=== PATIENT | female | born 1980 | race Two or more races ===

== ENCOUNTER 2024-09-09 02:08 | Inpatient (IN) | payer MEDICAID, OTHER ==
[~2024-09-09] VITALS: Ht 160 cm; Wt 60.0 kg
--- NOTE | 2024-09-09 02:32 | ED.PDOC ---
History of Present Illness HPI Comments 44 y/o F, with a Hx of obesity, lower molar caps placement, and tobacco use, presents with c/o left lower jaw swelling, today. Patient reports sudden onset of symptoms that she awoke to, this morning. Patient endorses on Hx of no dental work since the age of 8 w/exception of molar caps placements that fell off 2 years ago. Patient admits to still being able to move her jaw. Patient states on having no additional significant past medical, surgical, or family Hx in addition to recent injuries, sick contact, travel, spoiled food intake, or substance use/exposure. Patient denies having any shortness of breath, jaw pain, headache, fever, chills, or other associated symptoms or modifiers at this time. 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 Family History Family History: Unknown Social History Smoker: Cigarettes Alcohol: Denies ETOH Use Drugs: Denies Drug Use Lives In: Home Constitutional: denies: chills, diaphoresis, fatigue, fever, malaise, sweats, weakness, others EENTM: reports: others (left lower jaw swelling); denies: blurred vision, double vision, ear bleeding, ear discharge, ear drainage, ear pain, ear ringing, eye pain, eye redness, hearing loss, mouth pain, mouth swelling, nasal discharge, nose bleeding, nose congestion, nose pain, photophobia, tearing, throat pain, throat swelling, voice changes Respiratory: denies: cough, hemoptysis, orthopnea, SOB at rest, shortness of breath, SOB with excertion, stridor, wheezing, others Cardiovascular: denies: chest pain, dizzy spells, diaphoresis, Dyspnea on exertion, edema, irregular heart beat, left arm pain, lightheadedness, palpitations, PND, syncope, others Gastrointestinal: denies: abdomen distended, abdominal pain, blood streaked bowels, constipated, diarrhea, dysphagia, difficulty swallowing, hematemesis, melena, nausea, poor appetite, poor fluid intake, rectal bleeding, rectal pain, vomiting, others Genitourinary: denies: abnormal vagina bleeding, burning, dyspareunia, dysuria, flank pain, frequency, hematuria, incontinence, pain, , vagina discharge, urgency, others Neurological: denies: dizziness, fainting, headache, left sided numbness, left sided weakness, numbness, paresthesia, pre-existing deficit, right sided numbness, right sided weakness, seizure, speech problems, tingling, tremors, weakness, others Musculoskeletal: denies: back pain, gout, joint pain, joint swelling, muscle pain, muscle stiffness, neck pain, others Integumetry: denies: bruises, change in color, change in hair/nails, dryness, laceration, lesions, lumps, rash, wounds, others Allergic/Immunocompromised: denies: Difficulty Healing, Frequent Infections, Hives, Itching, others Hematologic/Lymphatic: denies: anemia, blood clots, easy bleeding, easy bruising, swollen glands, others Endocrine: denies: excessive hunger, excessive sweating, excessive thirst, excessive urination, flushing, intolerance to cold, intolerance to heat, unexplained weight gain, unexplained weight loss, others Psychiatric: denies: anxiety, bipolar disorder, depression, hopeless, panic disorder, schizophrenia, sleepless, suicidal, others All Other Systems: Reviewed and Negative Physical Exam General Appearance: No Apparent Distress, Obese HEENT: Pharynx Normal, TMs Normal, Other (left mandible swelling, no trismus, rull ROM of the jaw, no swelling to oral cavity, two extensive deep dental caries to bilateral lower molars) Neck: Full Range of Motion, Non-Tender, Normal, Normal Inspection Respiratory: Chest Non-Tender, Lungs Clear, No Accessory Muscle Use, No Respiratory Distress, Normal Breath Sounds Cardiovascular: No Edema, No JVD, No Murmur, No Gallop, Normal Peripheral Pulses, Regular Rate/Rhythm Breast Exam: Deferred Gastrointestinal: No Organomegaly, Non Tender, No Pulsatile Mass, Normal Bowel Sounds, Soft Genitalia: Deferred Pelvic: Deferred Rectal: Deferred Extremities: No calf tenderness, Normal capillary refill, Normal inspection, Normal range of motion, Non-tender, No pedal edema Musculoskeletal : Apperance: Normal Neurologic: Alert, crap game box person II-XII nml as Tested, No Motor Deficits, Normal Affect, Normal Mood, No Sensory Deficits Cerebellar Function: Normal Reflexes: Normal Skin: Dry, Normal Color, Warm Lymphatic: No Adenopathy Was a procedure done? Was a procedure done?: No Differential Dx Considerations may include: mandibular abscess, mandibular mass, facial cellulitis, jaw fracture, dental carries, gingivitis, airway compromise, osteomyelitis X-Ray, Labs, Meds, VS Vital Signs Date Time Temp Pulse Resp B/P (MAP) Pulse Ox O2 Delivery O2 Flow Rate FiO2 09/09/24 02:21 99.0 99 18 170/114 (132) 98 Lab Test 09/09/24 02:28 Range/Units White Blood Count 17.4 H 4.4-10.8 10^3/uL Red Blood Count 4.75 4.0-5.20 10^6/uL Hemoglobin 16.9 H 12.2-16.2 g/dL Hematocrit 49.4 H 36.0-46.0 % Mean Corpuscular Volume 104.1 H 80.0-100.0 fL Mean Corpuscular Hemoglobin 35.6 H 28.0-32.0 pg Mean Corpuscular Hemoglobin Concent 34.2 32.0-36.0 g/dL Red Cell Distribution Width 13.8 11.8-14.3 % Platelet Count 322 140-450 10^3/uL Mean Platelet Volume 7.8 6.9-10.8 fL Neutrophils (%) (Auto) 78.0 37.0-80.0 % Lymphocytes (%) (Auto) 16.0 10.0-50.0 % Monocytes (%) (Auto) 4.4 0.0-12.0 % Eosinophils (%) (Auto) 0.4 0.0-7.0 % Basophils (%) (Auto) 1.2 0.0-2.0 % Neutrophils # (Auto) 13.6 H 1.6-8.6 10 ^3/uL Lymphocytes # (Auto) 2.8 0.4-5.4 10 ^3/uL Monocytes # (Auto) 0.8 0-1.3 10 ^3/uL Eosinophils # (Auto) 0.1 0-0.8 10 ^3/uL Basophils # (Auto) 0.2 0-0.2 10 ^3/uL Nucleated Red Blood Cells 0.0 % Sodium Level 142 136-145 mmol/L Potassium Level 3.5 3.5-5.1 mmol/L Chloride Level 106 98-107 mmol/L Carbon Dioxide Level 24 20-31 mmol/L Anion Gap 12 5-15 Blood Urea Nitrogen 5 L 9-23 mg/dL Creatinine 0.62 0.550-1.02 mg/dL Glomerular Filtration Rate Calc 113 >90 mL/min BUN/Creatinine Ratio 8.1 L 10.0-20.0 Serum Glucose 103 74-106 mg/dL Calcium Level 9.8 8.7-10.4 mg/dL Time of 1ST Reevaluation: 02:50 Reevaluation 1ST: Unchanged Time of 2ND Reevaluation: 03:02 Reevaluation 2ND: Improved Patient Education/Counseling: Diagnosis, Treatment Family Education/Counseling: No Family Present Additional Information pt has dental caries with sudden onset of swelling on the left jaw. by exam and history, pt likely has a phlegmon, without leandro abscess yet. xray soft tissue swelling. pt will need admission for iv abx. she does not have any signs of airway threats, nor trismus Departure 1 Departure Time of Disposition: 03:04 Impression: Primary Impression: Dental caries Additional Impression: Dental abscess Disposition: ADMITTED INPATIENT Admit to: Med Surg Condition: Stable Critical Care Note Critical Care Time?: No Critical care comment: due to the possibility of acute airway conpromise from worsening and deterioration of pt's condition, her care required my highest level of at tention. i assessed her and formulated a care plan, communicated with medical personnel, and reviewed her results, reassessed her and provided updates. total time excludes any procedures Stability Stability form required: No Heart Score Heart Score: Heart Score Response (Comments) Value History N/A 0 EKG N/A 0 Age N/A 0 Risk Factors N/A 0 Troponin N/A 0 Total 0 I personally scribed for SHARI JONES MD ([email or web address]) on 09/09/24 at 02:32. Electronically submitted by Raymon Banuelos ([email or web address]). SHARI JONES MD Sep 09, 2024 02:32
[2024-09-09 02:44] LABS: Eosinophils # (auto) 0.1 10 ^3/uL (0-0.8); Eosinophils % (auto) 0.4 % (0.0-7.0); Neutrophils # (auto) 13.6 10 ^3/uL (1.6-8.6); Red Cell Distribution Width 13.8 % (11.8-14.3)
[2024-09-09 02:45] LABS: Basophils # (auto) 0.2 10 ^3/uL (0-0.2); Basophils % (auto) 1.2 % (0.0-2.0); Hematocrit 49.4 % (36.0-46.0); Hemoglobin 16.9 g/dL (12.2-16.2); Lymphocytes # (auto) 2.8 10 ^3/uL (0.4-5.4); Mean Corpuscular Hemoglobin 35.6 pg (28.0-32.0); Mean Corpuscular Hgb Conc. 34.2 g/dL (32.0-36.0); Mean Corpuscular Volume 104.1 fL (80.0-100.0); Monocytes # (auto) 0.8 10 ^3/uL (0-1.3); Monocytes % (auto) 4.4 % (0.0-12.0); Platelet Count (auto) 322 10^3/uL (140-450); Red Blood Cells 4.75 10^6/uL (4.0-5.20); White Blood Cell 17.4 10^3/uL (4.4-10.8)
[2024-09-09 02:51] LABS: Chloride 106 mmol/L (98-107); Potassium 3.5 mmol/L (3.5-5.1); Sodium 142 mmol/L (136-145)
[2024-09-09 02:52] LABS: Anion Gap 12 (5-15); Calcium 9.8 mg/dL (8.7-10.4); Carbon Dioxide 24 mmol/L (20-31)
[2024-09-09 02:57] LABS: BUN/Creatinine Ratio 8.1 (10.0-20.0); Blood Urea Nitrogen 5 mg/dL (9-23); Glucose 103 mg/dL (74-106)
--- NOTE | 2024-09-09 03:49 | DVH ---
Examination: MANDB CLINICAL INDICATION: mandibular swelling COMPARISON: None. TECHNIQUE: Five radiographs of the mandible were obtained. FINDINGS: There is no acute fracture or dislocation. There is no evidence of lytic or blastic lesion. Soft tissue swelling in bilateral submandibular regions (left more than right). Radiopaque dental fillings noted. IMPRESSION: 1. Soft tissue swelling in bilateral submandibular regions (left more than right). 2. Advised further evaluation with local ultrasound study. Electronically Signed 09/09/2024 03:40 Delores Ramsey
[2024-09-09] MEDS: cefTRIAXone SOD 1,000 MG VL IM ONE (04:51)
[2024-09-09 06:20] VITALS: PULSE 116; RESP 16; O2SAT 96
--- NOTE | 2024-09-09 07:14 | DVHHP2 ---
History of Present Illness Reason for Visit: Left facial swelling History of Present Illness 44-year-old female presents for evaluation of left facial swelling. Patient reports recently losing one of her molar caps. She states waking up yesterday with her left face swollen. She reports mild tenderness on palpation. No fever or chills. Denies difficulty breathing or swallowing. Past Medical History Denies Past Surgical History Denies Family History Noncontributory Smoke: No Drugs: None Lives: Alone Review of Systems Review of Systems Review of systems are currently negative otherwise addressed in HPI. Allergies: Coded Allergies: No Known Drug Allergy (Verified Allergy, Unknown, 09/09/24) Exam Vital Signs Vital Signs Date Time Temp Pulse Resp B/P (MAP) Pulse Ox O2 Delivery O2 Flow Rate FiO2 09/09/24 07:04 105 17 155/100 (118) 94 09/09/24 06:20 Room Air* 0 21 21 09/09/24 04:48 97.3 97.3 Exam Gen: 44-year-old female in mild Skin: Warm, dry, normal color and texture, no rash. HEENT: Normocephalic atraumatic, mucous membranes moist and pink, left facial swelling with mild cellulitis. Neck: Cervical and supraclavicular nodes normal without enlargement, trachea is midline, thyroid gland is normal without masses. Pulmonary: Clear to auscultation and percussion bilaterally. Cardiac: Regular rate and rhythm. No murmur Abdomen: Soft, nontender, nondistended, bowel sounds present all 4 quadrants, no guarding, no rigidity, no organomegaly. Extremities: No cyanosis, clubbing, no edema Neuro: Cranial nerves II through XII grossly intact, normal affect and speech, no focal motor deficits. Labs/Xrays ORDERING PHYSICIAN: SHARI JONES MD PROCEDURE(s): MANDB - MANDIBLE COMPLETE MIN 4V REASON: mandibular swelling ORDER NUMBER(s): [id number], ACCESSION NUMBER(s): [id number] Examination: MANDB CLINICAL INDICATION: mandibular swelling COMPARISON: None. TECHNIQUE: Five radiographs of the mandible were obtained. FINDINGS: There is no acute fracture or dislocation. There is no evidence of lytic or blastic lesion. Soft tissue swelling in bilateral submandibular regions (left more than right). Radiopaque dental fillings noted. IMPRESSION: 1. Soft tissue swelling in bilateral submandibular regions (left more than right). 2. Advised further evaluation with local ultrasound study. Electronically Signed 09/09/2024 03:40 Delores Ramsey ATED BY: BLAISE HUMMEL MD Labs Test 09/09/24 02:28 Range/Units White Blood Count 17.4 H 4.4-10.8 10^3/uL Red Blood Count 4.75 4.0-5.20 10^6/uL Hemoglobin 16.9 H 12.2-16.2 g/dL Hematocrit 49.4 H 36.0-46.0 % Mean Corpuscular Volume 104.1 H 80.0-100.0 fL Mean Corpuscular Hemoglobin 35.6 H 28.0-32.0 pg Mean Corpuscular Hemoglobin Concent 34.2 32.0-36.0 g/dL Red Cell Distribution Width 13.8 11.8-14.3 % Platelet Count 322 140-450 10^3/uL Mean Platelet Volume 7.8 6.9-10.8 fL Neutrophils (%) (Auto) 78.0 37.0-80.0 % Lymphocytes (%) (Auto) 16.0 10.0-50.0 % Monocytes (%) (Auto) 4.4 0.0-12.0 % Eosinophils (%) (Auto) 0.4 0.0-7.0 % Basophils (%) (Auto) 1.2 0.0-2.0 % Neutrophils # (Auto) 13.6 H 1.6-8.6 10 ^3/uL Lymphocytes # (Auto) 2.8 0.4-5.4 10 ^3/uL Monocytes # (Auto) 0.8 0-1.3 10 ^3/uL Eosinophils # (Auto) 0.1 0-0.8 10 ^3/uL Basophils # (Auto) 0.2 0-0.2 10 ^3/uL Nucleated Red Blood Cells 0.0 % Sodium Level 142 136-145 mmol/L Potassium Level 3.5 3.5-5.1 mmol/L Chloride Level 106 98-107 mmol/L Carbon Dioxide Level 24 20-31 mmol/L Anion Gap 12 5-15 Blood Urea Nitrogen 5 L 9-23 mg/dL Creatinine 0.62 0.550-1.02 mg/dL Glomerular Filtration Rate Calc 113 >90 mL/min BUN/Creatinine Ratio 8.1 L 10.0-20.0 Serum Glucose 103 74-106 mg/dL Calcium Level 9.8 8.7-10.4 mg/dL Assessment/Plan Assessment/Plan Assessment Left facial cellulitis Leukocytosis Plan Admit the patient to [facility] to the hospitalist Vancomycin Clear liquid diet Pain management Continue treatment per orders. Plan discussed with: Patient My Orders Orders - ROSA MARIA TROY Procedure Category Date Status Time Vancomycin Per PHA 09/09/24 Verified Pharmacy 07:15 Lactic Acid W/ Reflex LAB 09/09/24 Verified Order 07:05 Basic Metabolic Panel LAB 09/10/24 Verified 04:00 Admit ADMIT 09/09/24 Verified 07:05 Hydrocodone-Acet PHA 09/09/24 Verified 5/325mg Tab ([place] 07:15 Temazepam (Restoril) PHA 09/09/24 Verified 07:15 Ondansetron Hcl PHA 09/09/24 Verified (Zofran) 07:15 Complete Blood Count LAB 09/10/24 Verified 04:00 Condition: Stable TANVIR 09/09/24 Verified 07:05 Acetaminophen Tablet PHA 09/09/24 Verified (Tylenol Tablet) 07:15 Bedrest With Bathroom TANVIR 09/09/24 Verified Privileg 07:05 Date of Service: Sep 09, 2024 Billing Provider: ROSA MARIA TROY Common Visit Codes: [id number] INP/OBS CARE (MOD) ROSA MARIA TROY Sep 09, 2024 07:14
[2024-09-09] MEDS ORDERED: VANCOMYCIN PER PHARMACY 0 MG IV SCH (07:15)
[2024-09-09] MEDS ORDERED: ACETAMINOPHEN 325 MG TAB PO PRN (07:15)
[2024-09-09] MEDS ORDERED: TEMAZEPAM 15 MG CAP PO PRN (07:15)
[2024-09-09] MEDS: VANCOMYCIN 1.25GM/250ML 250 ML IV ONE (08:11)
[2024-09-09 08:25] VITALS: PULSE 98; RESP 16; O2SAT 96
[2024-09-09 08:36] LABS: Lactic Acid w/Reflex 2.6 mmol/L (0.4-2.0)
[2024-09-09] MEDS: IOHEXOL 300 MG/ML 100ML BOTTLE IJ ONE (11:35)
[2024-09-09] MEDS: ONDANSETRON HCL 4 MG/2 ML VIAL IV PRN (11:56)
[2024-09-09] MEDS: MORPHINE SULFATE INJ 2 MG/ml SYRG IV PRN (11:58)
[2024-09-09] MEDS: MORPHINE SULFATE INJ 2 MG/ml SYRG ONE (12:07)
--- NOTE | 2024-09-09 12:25 | DVH ---
CT maxillofacial HISTORY: r/o abscess TECHNIQUE: Serial axial images were performed through the facial bones and reformatted in sagittal an d coronal planes. 100 cc Omnipaque 300 given IV FINDINGS:On axial images no fractures of the mandible, zygomatic arches, orbital lateral or medial or bital [place]. On sagittal images no fractures of the anterior maxillary spine or nasal bone. No fractures of the an terior posterior [place] of the paranasal sinuses On coronal images no fractures of the superior or inferior [place] of the orbits. The temporomandibular joints are symmetrically aligned. On soft tissue windows there is soft tissue swelling of the left masseter muscle and overlying subc utaneous tissues. No leandro abscess seen. No enlarged nodes in the upper neck. Small bilateral level 1 and level 2 lymph nodes are present. No masses in the parotid gland or parotid abscess. Paranasal sinuses are clear. No erosion of bone. IMPRESSION: 1. Soft tissue swelling overlying the left mandible without discernible mass or bony erosion Computed Tomographic Radiation Dosimetry Report: Total CTDI vol = 60 mGy Total DLP = 1370 mGy-cm All CT scans at this medical facility are performed using dose modulation techniques as appropriate t o a performed exam including the following: Automated exposure control was utilized; adjustment of the MA and/or KvP according to patient size; a nd use of iterative reconstruction technique.
[2024-09-09] MEDS: AMPICILLIN & SULBACTAM SODIUM 3 GM in SODIUM CHL 0.9% 100 ML IV SCH (14:26)
[2024-09-09] MEDS: HYDROcodone-ACET 5/325MG TAB PO PRN (14:27)
[2024-09-09] MEDS: VANCOMYCIN 1GM/200ML PREMIX 200 ML IV SCH (15:43)
--- NOTE | 2024-09-09 19:25 | DVHPN2 ---
Subjective 44-year-old female with 1 day history of left side facial swelling. Admitted for left facial cellulitis. CT done, no abscess. Reviewed: Care Plan, H&P, Labs, Medications, Previous Orders, Radiology Changes from previous H/P or p: No Changes Objective Vitals Vital Signs Date Time Temp Pulse Resp B/P (MAP) Pulse Ox O2 Delivery O2 Flow Rate FiO2 09/09/24 18:49 93 21 130/79 (96) 99 09/09/24 15:06 98.3 98.3 09/09/24 08:25 Room Air* 0 21 21 Exam Alert, oriented x3 PERRLA Warm and flushed left mandibular swelling Multiple dental caries No JVD Clear breath sounds bilaterally S1-S2 regular rate and rhythm no murmur Abdomen soft nontender, no hepatomegaly Equal strength bilaterally on upper and lower extremities No lower extremity edema Medications Current Medications Medications Dose Ordered Sig/Charlette Route Start Time Stop Time Status Last Admin Dose Admin Vancomycin HCl 0 ml @ 0 mls/hr UD IV 09/09/24 07:15 Acetaminophen/ Hydrocodone Bitart 1 tab Q4HP PRN PO 09/09/24 07:15 09/09/24 14:27 1 TAB Temazepam 15 mg QHSP PRN PO 09/09/24 07:15 Ondansetron HCl 4 mg Q4HP PRN IV 09/09/24 07:15 09/09/24 18:26 4 MG Acetaminophen 650 mg Q6HP PRN PO 09/09/24 07:15 Vancomycin HCl 200 ml @ 200 mls/hr Q8H IV 09/09/24 16:00 09/09/24 15:43 200 MLS/HR Morphine Sulfate 2 mg Q4HPRN PRN IV 09/09/24 11:45 09/09/24 18:28 2 MG Ampicillin Sodium/ Sulbactam Sodium 3 gm/Sodium Chloride 100 ml @ 100 mls/hr Q6H IV 09/09/24 13:15 09/09/24 14:26 100 MLS/HR Laboratory Results Laboratory Tests 09/09/24 02:28 Chemistry Test 09/09/24 02:28 Calcium Level 9.8 mg/dL (8.7-10.4) Labs and/or images reviewed: Labs reviewed by me, Image(s) reviewed by me Assessment/Plan Assessment/Plan Left facial cellulitis Dental infection Leukocytosis Start IV Unasyn CT reviewed, no abscess If no clinical improvement, patient will need oral surgery consult We will hold and try IV antibiotics for now Pain control Diet advanced as tolerated DVT prophylaxis ambulatory Plan discussed with: Patient My Orders Orders - PEDRO LAZO MD Procedure Category Date Status Time Maxillofacial With CT 09/09/24 Resulted 11:01 Ampicillin & PHA 09/09/24 In Process Sulbactam Sodium 13:15 Mrsa Screen ASHLEE 09/09/24 Logged 13:06 Blood Culture ASHLEE 09/09/24 In Process 13:06 Date of Service: Sep 09, 2024 Billing Provider: PEDRO LAZO MD Common Visit Codes: [id number] INP/OBS CARE(HIGH) PEDRO LAZO MD Sep 09, 2024 19:25
[2024-09-09 21:00] VITALS: BP 171/99; PULSE 81; RESP 17; TEMP 97.9; O2SAT 98
[2024-09-10] VITALS (8 sets, daily range): BP systolic 144–171; BP diastolic 90–111; PULSE 76–95; RESP 17–18; TEMP 97.5–98.3; O2SAT 95–98
[2024-09-10] MEDS: AMPICILLIN & SULBACTAM SODIUM 3 GM in SODIUM CHL 0.9% 100 ML IV SCH (02:55)
[2024-09-10 05:05] LABS: Basophils # (auto) 0 10 ^3/uL (0-0.2); Basophils % (auto) 0.1 % (0.0-2.0); Eosinophils # (auto) 0 10 ^3/uL (0-0.8); Eosinophils % (auto) 0.3 % (0.0-7.0); Hematocrit 41.9 % (36.0-46.0); Lymphocytes # (auto) 1.7 10 ^3/uL (0.4-5.4); Lymphocytes % (auto) 13.7 % (10.0-50.0); Mean Corpuscular Hgb Conc. 33.4 g/dL (32.0-36.0); Mean Corpuscular Volume 104.9 fL (80.0-100.0); Monocytes # (auto) 0.7 10 ^3/uL (0-1.3); Monocytes % (auto) 6.1 % (0.0-12.0); Neutrophils # (auto) 9.7 10 ^3/uL (1.6-8.6); Neutrophils % (auto) 79.8 % (37.0-80.0); Nucleated Red Blood Cells % 0.1 %; Platelet Count (auto) 234 10^3/uL (140-450); Red Blood Cells 3.99 10^6/uL (4.0-5.20); Red Cell Distribution Width 13.4 % (11.8-14.3); White Blood Cell 12.1 10^3/uL (4.4-10.8)
[2024-09-10 05:14] LABS: Chloride 104 mmol/L (98-107); Potassium 3.2 mmol/L (3.5-5.1); Sodium 139 mmol/L (136-145)
[2024-09-10 05:15] LABS: Anion Gap 7 (5-15); Calcium 8.9 mg/dL (8.7-10.4); Carbon Dioxide 28 mmol/L (20-31)
[2024-09-10 05:20] LABS: BUN/Creatinine Ratio 7.9 (10.0-20.0); Blood Urea Nitrogen 5 mg/dL (9-23); Glucose 104 mg/dL (74-106)
[2024-09-10] MEDS: amLODIPine BESYLATE 5 MG TAB PO SCH (08:59)
--- NOTE | 2024-09-10 16:30 | DVHPN2 ---
Subjective 44-year-old female with 1 day history of left side facial swelling. Admitted for left facial cellulitis. CT done, no abscess. Seen by me today during rounds Improvement in facial swelling, and improvement in pains. Patient on day2 of Twin Reviewed: Care Plan, H&P, Labs, Medications, Previous Orders, Radiology Changes from previous H/P or p: No Changes Objective Vitals Vital Signs Date Time Temp Pulse Resp B/P (MAP) Pulse Ox O2 Delivery O2 Flow Rate FiO2 09/10/24 14:52 78 20 143/54 09/10/24 12:30 98.0 98 98.0 09/10/24 08:00 Room Air* 0 21 Intake/Output Intake and Output 09/10/24 07:00 Intake Total 750 ml Balance 750 ml IV Total 750 ml Exam Alert, oriented x3 PERRLA Warm and flushed left mandibular swelling Multiple dental caries No JVD Clear breath sounds bilaterally S1-S2 regular rate and rhythm no murmur Abdomen soft nontender, no hepatomegaly Equal strength bilaterally on upper and lower extremities No lower extremity edema Medications Current Medications Medications Dose Ordered Sig/Charlette Route Start Time Stop Time Status Last Admin Dose Admin Vancomycin HCl 0 ml @ 0 mls/hr UD IV 09/09/24 07:15 Acetaminophen/ Hydrocodone Bitart 1 tab Q4HP PRN PO 09/09/24 07:15 09/10/24 06:48 1 TAB Temazepam 15 mg QHSP PRN PO 09/09/24 07:15 Ondansetron HCl 4 mg Q4HP PRN IV 09/09/24 07:15 09/10/24 14:21 4 MG Acetaminophen 650 mg Q6HP PRN PO 09/09/24 07:15 Vancomycin HCl 200 ml @ 200 mls/hr Q8H IV 09/09/24 16:00 09/10/24 08:58 200 MLS/HR Morphine Sulfate 2 mg Q4HPRN PRN IV 09/09/24 11:45 09/10/24 14:22 2 MG Ampicillin Sodium/ Sulbactam Sodium 3 gm/Sodium Chloride 100 ml @ 100 mls/hr Q6H IV 09/10/24 02:15 09/10/24 14:23 100 MLS/HR Amlodipine Besylate 5 mg DAILY PO 09/10/24 10:00 09/10/24 08:59 5 MG Laboratory Results Laboratory Tests 09/10/24 04:06 Chemistry Test 09/10/24 04:06 Calcium Level 8.9 mg/dL (8.7-10.4) Microbiology Microbiology Date/Time Source Procedure Growth Status 09/09/24 13:23 Blood Blood Culture - Preliminary NO GROWTH AFTER 24 HOURS OF INCUBATION. Resulted Labs and/or images reviewed: Labs reviewed by me, Image(s) reviewed by me Assessment/Plan Assessment/Plan Left facial cellulitis Dental infection Leukocytosis Start IV Unasyn vanco CT reviewed, no abscess If no clinical improvement, patient will need oral surgery consult We will hold and try IV antibiotics for now Pain control , scheduled Tylenol and Motrin Diet advanced as tolerated DVT prophylaxis ambulatory Plan discussed with: Patient My Orders Orders - PEDRO LAZO MD Procedure Category Date Status Time Mrsa Screen ASHLEE 09/09/24 Logged 19:25 Ampicillin & PHA 09/10/24 In Process Sulbactam Sodium 02:15 Amlodipine Tablet PHA 09/10/24 In Process (Norvasc Tablet) 10:00 Date of Service: Sep 10, 2024 Billing Provider: PEDRO LAZO MD Common Visit Codes: [id number] INP/OBS CARE(HIGH) PEDRO ALZO MD Sep 10, 2024 16:30
[2024-09-10] MEDS: ACETAMINOPHEN 325 MG TAB PO SCH (21:49)
[2024-09-10] MEDS: IBUPROFEN 400 MG TAB PO SCH (21:50)
[2024-09-11] VITALS (7 sets, daily range): BP systolic 117–159; BP diastolic 76–105; PULSE 67–79; RESP 18–20; TEMP 97.7–98.4; O2SAT 96–98
[2024-09-11 05:28] LABS: Basophils # (auto) 0 10 ^3/uL (0-0.2); Basophils % (auto) 0.2 % (0.0-2.0); Eosinophils # (auto) 0.1 10 ^3/uL (0-0.8); Eosinophils % (auto) 1.1 % (0.0-7.0); Hematocrit 40.8 % (36.0-46.0); Hemoglobin 13.8 g/dL (12.2-16.2); Lymphocytes # (auto) 1.6 10 ^3/uL (0.4-5.4); Lymphocytes % (auto) 15.5 % (10.0-50.0); Mean Corpuscular Hemoglobin 35.5 pg (28.0-32.0); Mean Corpuscular Hgb Conc. 33.9 g/dL (32.0-36.0); Mean Corpuscular Volume 104.5 fL (80.0-100.0); Monocytes # (auto) 0.7 10 ^3/uL (0-1.3); Monocytes % (auto) 6.2 % (0.0-12.0); Neutrophils # (auto) 8.2 10 ^3/uL (1.6-8.6); Platelet Count (auto) 237 10^3/uL (140-450); Red Cell Distribution Width 13.5 % (11.8-14.3); White Blood Cell 10.6 10^3/uL (4.4-10.8)
[2024-09-11 05:30] LABS: Chloride 109 mmol/L (98-107); Potassium 3.5 mmol/L (3.5-5.1); Sodium 142 mmol/L (136-145)
[2024-09-11 05:31] LABS: Anion Gap 7 (5-15); Calcium 8.8 mg/dL (8.7-10.4); Carbon Dioxide 26 mmol/L (20-31)
[2024-09-11 05:36] LABS: Glucose 113 mg/dL (74-106)
[2024-09-11 05:37] LABS: BUN/Creatinine Ratio 9.4 (10.0-20.0); Blood Urea Nitrogen < 5 mg/dL (9-23)
[2024-09-11] MEDS ORDERED: diphenhdrAMINE HCL 50 MG/1 ML VL IV PRN (11:30)
--- NOTE | 2024-09-11 12:22 | DVHPN2 ---
Subjective 44-year-old female with 1 day history of left side facial swelling. Admitted for left facial cellulitis. CT done, no abscess. Seen by me today during rounds Further improvement in swelling and pain. patient developed a rash in her neck and chest. no breathing problems. will givebenadryl for now. start protonix. Reviewed: Care Plan, H&P, Labs, Medications, Previous Orders, Radiology Changes from previous H/P or p: No Changes Objective Vitals Vital Signs Date Time Temp Pulse Resp B/P (MAP) Pulse Ox O2 Delivery O2 Flow Rate FiO2 09/11/24 11:00 79 19 126/86 09/11/24 08:57 97.7 97 97.7 09/10/24 20:30 Room Air* 0 21 Intake/Output Intake and Output 09/11/24 07:00 Intake Total 1676 ml Balance 1676 ml Intake Oral 1276 ml IV Total 400 ml # Voids 9 Exam Alert, oriented x3 PERRLA Warm and flushed left mandibular swelling Multiple dental caries No JVD Clear breath sounds bilaterally S1-S2 regular rate and rhythm no murmur Abdomen soft nontender, no hepatomegaly Equal strength bilaterally on upper and lower extremities No lower extremity edema Medications Current Medications Medications Dose Ordered Sig/Charlette Route Start Time Stop Time Status Last Admin Dose Admin Vancomycin HCl 0 ml @ 0 mls/hr UD IV 09/09/24 07:15 Acetaminophen/ Hydrocodone Bitart 1 tab Q4HP PRN PO 09/09/24 07:15 09/11/24 04:46 1 TAB Temazepam 15 mg QHSP PRN PO 09/09/24 07:15 Ondansetron HCl 4 mg Q4HP PRN IV 09/09/24 07:15 09/10/24 14:21 4 MG Vancomycin HCl 200 ml @ 200 mls/hr Q8H IV 09/09/24 16:00 09/11/24 08:48 200 MLS/HR Morphine Sulfate 2 mg Q4HPRN PRN IV 09/09/24 11:45 09/11/24 11:00 2 MG Ampicillin Sodium/ Sulbactam Sodium 3 gm/Sodium Chloride 100 ml @ 100 mls/hr Q6H IV 09/10/24 02:15 09/11/24 10:06 100 MLS/HR Amlodipine Besylate 5 mg DAILY PO 09/10/24 10:00 09/11/24 08:59 5 MG Acetaminophen 650 mg Q8HR PO 09/10/24 22:00 09/11/24 05:45 650 MG Ibuprofen 400 mg Q8HR PO 09/10/24 22:00 09/11/24 05:45 400 MG Pantoprazole Sodium 40 mg DAILY@0600 PO 09/12/24 06:00 Diphenhydramine HCl 25 mg Q4HP PRN IV 09/11/24 11:30 Laboratory Results Laboratory Tests 09/11/24 04:20 Chemistry Test 09/11/24 04:20 Calcium Level 8.8 mg/dL (8.7-10.4) Microbiology Microbiology Date/Time Source Procedure Growth Status 09/09/24 13:23 Blood Blood Culture - Preliminary NO GROWTH AFTER 24 HOURS OF INCUBATION. Resulted Labs and/or images reviewed: Labs reviewed by me, Image(s) reviewed by me Assessment/Plan Assessment/Plan Left facial cellulitis Dental infection Leukocytosis drug reaction Start IV Unasyn vanco CT reviewed, no abscess If no clinical improvement, patient will need oral surgery consult We will hold and try IV antibiotics for now Pain control , scheduled Tylenol and Motrin will start benadryl airway watch Diet advanced as tolerated DVT prophylaxis ambulatory Plan discussed with: Patient My Orders Orders - PEDRO LAZO MD Procedure Category Date Status Time Acetaminophen Tablet PHA 09/10/24 In Process (Tylenol Tablet) 22:00 Ibuprofen Tablet PHA 09/10/24 In Process (Motrin Tablet) 22:00 Pantoprazole Tablet PHA 09/12/24 In Process (Protonix Tablet) 06:00 Diphenhdramine PHA 09/11/24 In Process Injection (Benadryl 11:30 Date of Service: Sep 11, 2024 Billing Provider: PEDRO LAZO MD Common Visit Codes: [id number] INP/OBS CARE(HIGH) PEDRO LAZO MD Sep 11, 2024 12:22
[2024-09-11] MEDS: PANTOPRAZOLE 40 MG TAB PO ONE (12:48)
[2024-09-12 01:00] VITALS: BP 120/80; PULSE 69; RESP 20; TEMP 98; O2SAT 97
[2024-09-12 05:00] VITALS: BP 139/96; PULSE 77; RESP 22; TEMP 98.1; O2SAT 99
[2024-09-12] MEDS: PANTOPRAZOLE 40 MG TAB PO SCH (07:06)
[2024-09-12 09:08] VITALS: BP 147/96; PULSE 87; RESP 19; TEMP 97.8; O2SAT 94
[2024-09-12] MEDS: amLODIPine BESYLATE 5 MG TAB PO ONE (11:38)
[2024-09-12] MEDS: POLYETHYLENE GLYCOL 17 GM PWDR PO PRN (11:41)
[2024-09-12 11:48] VITALS: BP 143/97; PULSE 78; RESP 16; TEMP 98.1; O2SAT 98
[2024-09-12] MEDS ORDERED: AML5T PO (12:44)
[2024-09-12] MEDS ORDERED: POLY335015 PO (12:44)
[2024-09-12] MEDS ORDERED: AUG875T PO (12:44)
[2024-09-12] MEDS ORDERED: IBUP1TAB4 PO (12:44)
[2024-09-12] MEDS ORDERED: DOXY100C79 PO (12:44)
[2024-09-12] MEDS ORDERED: PANT40TA2 PO (12:44)
--- NOTE | 2024-09-12 13:39 | DVHDS2 ---
Discharge Summary Date of Admission Sep 09, 2024 at 07:05 Date of Discharge: Sep 12, 2024 Labs/Diagnostic Data: Laboratory Results Test 09/11/24 15:07 09/11/24 04:20 09/09/24 13:23 Vancomycin Level Trough 13.9 ug/mL (5-10) White Blood Count 10.6 10^3/uL (4.4-10.8) Red Blood Count 3.90 10^6/uL (4.0-5.20) Hemoglobin 13.8 g/dL (12.2-16.2) Hematocrit 40.8 % (36.0-46.0) Mean Corpuscular Volume 104.5 fL (80.0-100.0) Mean Corpuscular Hemoglobin 35.5 pg (28.0-32.0) Mean Corpuscular Hemoglobin Concent 33.9 g/dL (32.0-36.0) Red Cell Distribution Width 13.5 % (11.8-14.3) Platelet Count 237 10^3/uL (140-450) Mean Platelet Volume 8.4 fL (6.9-10.8) Neutrophils (%) (Auto) 77.0 % (37.0-80.0) Lymphocytes (%) (Auto) 15.5 % (10.0-50.0) Monocytes (%) (Auto) 6.2 % (0.0-12.0) Eosinophils (%) (Auto) 1.1 % (0.0-7.0) Basophils (%) (Auto) 0.2 % (0.0-2.0) Neutrophils # (Auto) 8.2 10 ^3/uL (1.6-8.6) Lymphocytes # (Auto) 1.6 10 ^3/uL (0.4-5.4) Monocytes # (Auto) 0.7 10 ^3/uL (0-1.3) Eosinophils # (Auto) 0.1 10 ^3/uL (0-0.8) Basophils # (Auto) 0 10 ^3/uL (0-0.2) Nucleated Red Blood Cells 0.0 % Sodium Level 142 mmol/L (136-145) Potassium Level 3.5 mmol/L (3.5-5.1) Chloride Level 109 mmol/L (98-107) Carbon Dioxide Level 26 mmol/L (20-31) Anion Gap 7 (5-15) Blood Urea Nitrogen < 5 mg/dL (9-23) Creatinine 0.53 mg/dL (0.550-1.02) Glomerular Filtration Rate Calc 118 mL/min (>90) BUN/Creatinine Ratio 9.4 (10.0-20.0) Serum Glucose 113 mg/dL (74-106) Calcium Level 8.8 mg/dL (8.7-10.4) Lactic Acid Level 1.3 mmol/L (0.4-2.0) Other Laboratory Tests 09/11/24 04:20 Brief Hx & Hospital Course: She will female with no significant past medical history admitted for cellulitis. CT maxillofacial obtained, no abscess. Cellulitis likely from dental origin. Patient would need to speak with social service team for insurance purposes. Patient on vanc and Unasyn, we will switch to Augmentin and doxy oral at home. Patient to follow up with dentist for further dental workup. Patient reported he also drinks alcohol daily in smoke cigarettes. No history of withdrawal, out of window. Patient had complained of constipation on day of discharge, Site with MiraLax at home. I spent about 10 minutes discussing really smoking cessation, patient report we will try to stop on his on her own Condition at Discharge: Good Final Diagnosis/Problems List facial cellulitis likely dental origin macrocytic anemia alcohol use smoker Discharge Disposition: Home Discharge Instruct/Medications Diet: Regular Activity: No Restrictions, As Tolerated Follow Up/Referral: continue with augmentin and doxycyclin for 10 more days follow up with your dentist avoid alcohol and tobacco Discharge Statement: "Patient was advised to return to the ER or call 911 if any headaches, dizziness, shortness of breath, chest pain, abdominal pain, bleeding, fevers, or worsening of medical condition. Patient was counseled about treatment plan, medications, possible side effects, patientverbalized understanding. All questions were answered to the best of my ability. This discharge took greater then 30 minutes in planning, reviewing documentation, counseling the patient, and discussing with other team members." ASSESSMENT ASSESSMENT Assessment facial cellulitis likely dental origin macrocytic anemia alcohol use smoker Date of Service: Sep 12, 2024 Billing Provider: PEDRO LAZO MD Common Visit Codes: 85710-PZD/OBS DISCH DAY >30min Secondary Visit Codes: 37134-ZDPZJ CHNG SMOKING 3-10m PEDRO LAZO MD Sep 12, 2024 13:39
[2024-09-12 14:31] VITALS: BP 138/88; PULSE 75; RESP 18; TEMP 97.8; O2SAT 100
[2024-09-12 14:46] VITALS: BP 132/87; PULSE 82; RESP 16
[2024-09-12] MEDS ORDERED: TRAM-626 PO (15:40)
[2024-09-13] MEDS ORDERED: amLODIPine BESYLATE 5 MG TAB PO SCH (10:00)
== END 2024-09-12 16:05 | disposition home or self-care (01) | DRG 720 ==
LOC: ER 02:08 → OVERFLOW 07:05 → WEST WING 21:18
PROVIDERS: ADMIT Nurse Practitioner; ATTEND Student in an Organized Health Care Education/Training Program
DX: A41.9 Sepsis, unspecified organism (principal); D53.9 Nutritional anemia, unspecified; L03.211 Cellulitis of face; E66.9 Obesity, unspecified; K04.7 Periapical abscess without sinus; K02.9 Dental caries, unspecified; K59.00 Constipation, unspecified; F17.210 Nicotine dependence, cigarettes, uncomplicated; Z68.23 Body mass index [BMI] 23.0-23.9, adult
CPT/HCPCS: 36415; 70110; 70487; 80048; 80202; 83605; 85025; 87040; 96365; 96375; G0378; J0696; J2405

== ENCOUNTER 2024-11-08 21:01 | Inpatient (IN) | payer MEDICAID ==
[~2024-11-08] VITALS: Ht 160 cm; Wt 58.2 kg
[~2024-11-08 21:01] MED LIST: AML5T PO; AUG875T PO; DOXY100C79 PO; IBUP1TAB4 PO; PANT40TA2 PO; POLY335015 PO; TRAM-626 PO
--- NOTE | 2024-11-08 21:41 | ED.PDOC ---
GI ASSESSMENT HPI Comments 44-year-old female who came to ER for abdominal pain. Patient denies any abdominal surgeries. States for the past 3 months, she has been having intermittent episodes of epigastric abdominal pain, described as burning, radiating to her midsternal area. Worsening of abdominal pain the past few days. She denies any nausea or vomiting or changes in bowel habits. States pain gets relief after meals. Patient has yet to see a GI specialist regarding this issue Chief Complaint: Abdominal pain Time Seen by MD: 21:40 Reviewed Notes: Nurses Notes Allergies: Coded Allergies: No Known Drug Allergy (Verified Allergy, Unknown, 09/09/24) Home Meds Active Scripts Tramadol HCl (Tramadol HCl) 50 Mg Tab, 50 MG PO TID PRN for 3 Days, #9 TAB Prov:PEDRO LAZO MD 09/12/24 Polyethylene Glycol 3350 (Miralax) 17 Gm Pow, 17 GM PO DAILYP PRN for 3 Days, #3 POW Prov:PEDRO LAZO MD 09/12/24 Pantoprazole Sodium Sesquihydr (Protonix) 40 Mg Tab, 40 MG PO DAILY for 30 Days, #30 TAB Prov:PEDRO LAZO MD 09/12/24 Doxycycline (Monohydrate) (Doxycycline) 100 Mg Cap, 100 MG PO BID for 11 Days, #22 CAP Prov:PEDRO LAZO MD 09/12/24 Amoxicillin & Pot Clavulanate (AUGMENTIN TABLET) 875 Mg Tb, 875 MG PO BID for 11 Days, #22 TAB Prov:PEDRO LAZO MD 09/12/24 Ibuprofen Micronized (Ibuprofen) 400 Mg Tab, 400 MG PO Q8HR for 10 Days, #30 TAB Prov:PEDRO LAZO MD 09/12/24 Amlodipine Besylate (NORVASC TABLET) 5 Mg Tb, 10 MG PO DAILY for 30 Days, #30 TAB Prov:PEDRO LAZO MD 09/12/24 Information Source: Patient Mode of Arrival: Ambulatory Timing: Months Duration: Intermittent Prehospital treatment: None Quality: Burning Vomitus: None Stool: Normal Severity: Moderate Recent: None Recent Hx of: None Pain Location: Epigastric Modifying Factors: Food Associated sign and symptoms: Abdominal Pain Past Medical History PAST MEDICAL HISTORY: HTN Surgical History: Denies all surgeries 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 Family History Family History: Reviewed,noncontributory to illness Social History Smoker: Cigarettes Alcohol: Denies ETOH Use Drugs: Denies Drug Use Lives In: Home Constitutional: denies: chills, diaphoresis, fatigue, fever, malaise, sweats, weakness, others EENTM: denies: blurred vision, double vision, ear bleeding, ear discharge, ear drainage, ear pain, ear ringing, eye pain, eye redness, hearing loss, mouth edvin n, mouth swelling, nasal discharge, nose bleeding, nose congestion, nose pain, photophobia, tearing, throat pain, throat swelling, voice changes, others Respiratory: denies: cough, hemoptysis, orthopnea, SOB at rest, shortness of breath, SOB with excertion, stridor, wheezing, others Cardiovascular: denies: chest pain, dizzy spells, diaphoresis, Dyspnea on exertion, edema, irregular heart beat, left arm pain, lightheadedness, palpitations, PND, syncope, others Gastrointestinal: reports: abdominal pain; denies: abdomen distended, blood streaked bowels, constipated, diarrhea, dysphagia, difficulty swallowing, hematemesis, melena, nausea, poor appetite, poor fluid intake, rectal bleeding, rectal pain, vomiting, others Genitourinary: denies: abnormal vagina bleeding, burning, dyspareunia, dysuria, flank pain, frequency, hematuria, incontinence, pain, , vagina discharge, urgency, others Neurological: denies: dizziness, fainting, headache, left sided numbness, left sided weakness, numbness, paresthesia, pre-existing deficit, right sided numbness, right sided weakness, seizure, speech problems, tingling, tremors, weakness, others Musculoskeletal: denies: back pain, gout, joint pain, joint swelling, muscle pain, muscle stiffness, neck pain, others Integumetry: denies: bruises, change in color, change in hair/nails, dryness, laceration, lesions, lumps, rash, wounds, others Allergic/Immunocompromised: denies: Difficulty Healing, Frequent Infections, Hives, Itching, others Hematologic/Lymphatic: denies: anemia, blood clots, easy bleeding, easy bruisin g, swollen glands, others Endocrine: denies: excessive hunger, excessive sweating, excessive thirst, excessive urination, flushing, intolerance to cold, intolerance to heat, unexplained weight gain, unexplained weight loss, others Psychiatric: denies: anxiety, bipolar disorder, depression, hopeless, panic disorder, schizophrenia, sleepless, suicidal, others Physical Exam General Appearance: No Apparent Distress, Normal HEENT: Normal ENT Inspection, Pharynx Normal, TMs Normal Neck: Full Range of Motion, Non-Tender, Normal, Normal Inspection Respiratory: Chest Non-Tender, Lungs Clear, No Accessory Muscle Use, No Respir atory Distress, Normal Breath Sounds Cardiovascular: No Edema, No JVD, No Murmur, No Gallop, Normal Peripheral Pulses, Regular Rate/Rhythm Breast Exam: Deferred Gastrointestinal: No Organomegaly, Non Tender, No Pulsatile Mass, Normal Bowel Sounds, Soft Genitalia: Deferred Pelvic: Deferred Rectal: Deferred Extremities: No calf tenderness, Normal capillary refill, Normal inspection, Normal range of motion, Non-tender, No pedal edema Musculoskeletal : Apperance: Normal Neurologic: Alert, frame hand II-XII nml as Tested, No Motor Deficits, Normal Affect, Normal Mood, No Sensory Deficits Cerebellar Function: Normal Reflexes: Normal Skin: Dry, Normal Color, Warm Lymphatic: No Adenopathy Was a procedure done? Was a procedure done?: No GI differential Dx Differential Diagnosis: Cholecystitis, Diverticular disease, Gastritis/PUD, Gastroenteritis, Hernia, Pancreatitis, UTI, Urolithiasis X-Ray, Labs, Meds, VS Vital Signs Date Time Temp Pulse Resp B/P (MAP) Pulse Ox O2 Delivery O2 Flow Rate FiO2 11/08/24 21:37 82 11/08/24 21:23 98.1 107 18 175/110 (131) 100 Lab Test 11/08/24 21:46 Range/Units White Blood Count 14.2 H 4.4-10.8 10^3/uL Red Blood Count 5.15 4.0-5.20 10^6/uL Hemoglobin 17.4 H 12.2-16.2 g/dL Hematocrit 50.9 H 36.0-46.0 % Mean Corpuscular Volume 98.8 80.0-100.0 fL Mean Corpuscular Hemoglobin 33.8 H 28.0-32.0 pg Mean Corpuscular Hemoglobin Concent 34.2 32.0-36.0 g/dL Red Cell Distribution Width 12.8 11.8-14.3 % Platelet Count 343 140-450 10^3/uL Mean Platelet Volume 8.4 6.9-10.8 fL Neutrophils (%) (Auto) 75.6 37.0-80.0 % Lymphocytes (%) (Auto) 17.5 10.0-50.0 % Monocytes (%) (Auto) 5.6 0.0-12.0 % Eosinophils (%) (Auto) 1.0 0.0-7.0 % Basophils (%) (Auto) 0.3 0.0-2.0 % Neutrophils # (Auto) 10.7 H 1.6-8.6 10 ^3/uL Lymphocytes # (Auto) 2.5 0.4-5.4 10 ^3/uL Monocytes # (Auto) 0.8 0-1.3 10 ^3/uL Eosinophils # (Auto) 0.1 0-0.8 10 ^3/uL Basophils # (Auto) 0 0-0.2 10 ^3/uL Nucleated Red Blood Cells 0.1 % Sodium Level 140 136-145 mmol/L Potassium Level 3.2 L 3.5-5.1 mmol/L Chloride Level 102 98-107 mmol/L Carbon Dioxide Level 33 H 20-31 mmol/L Anion Gap 5 5-15 Blood Urea Nitrogen 5 L 9-23 mg/dL Creatinine 0.69 0.550-1.02 mg/dL Glomerular Filtration Rate Calc 110 >90 mL/min BUN/Creatinine Ratio 7.2 L 10.0-20.0 Serum Glucose 97 74-106 mg/dL Calcium Level 11.1 H 8.7-10.4 mg/dL Total Bilirubin 0.2 0.2-1.0 mg/dL Aspartate Amino Transferase (AST) 18 13-40 U/L Alanine Aminotransferase (ALT) 27 7-40 U/L Alkaline Phosphatase 111 46-116 U/L Total Protein 7.8 5.7-8.2 g/dL Albumin 4.9 H 3.2-4.8 g/dL Lipase 64 H 12-53 U/L Beta HCG, Quantitative 0.8 L 1.5-4.2 mIU/mL Time of 1ST Reevaluation: 21:37 Reevaluation 1ST: Unchanged Time of 2ND Reevaluation: 22:33 Reevaluation 2ND: Unchanged Patient Education/Counseling: Diagnosis, Treatment Family Education/Counseling: No Family Present Departure 1 Departure Time of Disposition: 22:33 Impression: Primary Impression: Acute pancreatitis Additional Impression: Epigastric pain Disposition: ADMITTED INPATIENT Admit to: Med Surg Condition: Guarded Critical Care Note Critical Care Time?: No Stability Stability form required: No Heart Score Heart Score: Heart Score Response (Comments) Value History N/A 0 EKG N/A 0 Age N/A 0 Risk Factors N/A 0 Troponin N/A 0 Total 0 I personally scribed for BROOKLYN CHESTER MD ([email or web address]) on 11/08/24 at 21:41. Electronically submitted by Theodore Zhang ([email or web address]). BROOKLYN CHESTER MD Nov 08, 2024 21:41
[2024-11-08 22:10] LABS: Basophils # (auto) 0 10 ^3/uL (0-0.2); Basophils % (auto) 0.3 % (0.0-2.0); Eosinophils # (auto) 0.1 10 ^3/uL (0-0.8); Hematocrit 50.9 % (36.0-46.0); Hemoglobin 17.4 g/dL (12.2-16.2); Lymphocytes # (auto) 2.5 10 ^3/uL (0.4-5.4); Lymphocytes % (auto) 17.5 % (10.0-50.0); Mean Corpuscular Hemoglobin 33.8 pg (28.0-32.0); Mean Corpuscular Hgb Conc. 34.2 g/dL (32.0-36.0); Mean Corpuscular Volume 98.8 fL (80.0-100.0); Monocytes # (auto) 0.8 10 ^3/uL (0-1.3); Monocytes % (auto) 5.6 % (0.0-12.0); Neutrophils # (auto) 10.7 10 ^3/uL (1.6-8.6); Neutrophils % (auto) 75.6 % (37.0-80.0); Nucleated Red Blood Cells % 0.1 %; Platelet Count (auto) 343 10^3/uL (140-450); Red Blood Cells 5.15 10^6/uL (4.0-5.20); Red Cell Distribution Width 12.8 % (11.8-14.3); White Blood Cell 14.2 10^3/uL (4.4-10.8)
[2024-11-08 22:25] LABS: Alanine Aminotransferase 27 U/L (7-40); Alkaline Phosphatase 111 U/L (46-116); Anion Gap 5 (5-15); Aspartate Aminotransferase 18 U/L (13-40); BUN/Creatinine Ratio 7.2 (10.0-20.0); Chloride 102 mmol/L (98-107); Glucose 97 mg/dL (74-106); Sodium 140 mmol/L (136-145)
[2024-11-08 22:26] LABS: Albumin 4.9 g/dL (3.2-4.8); Bilirubin, Total 0.2 mg/dL (0.2-1.0); Blood Urea Nitrogen 5 mg/dL (9-23); Calcium 11.1 mg/dL (8.7-10.4); Carbon Dioxide 33 mmol/L (20-31); Potassium 3.2 mmol/L (3.5-5.1); Total Protein 7.8 g/dL (5.7-8.2)
[2024-11-08 22:27] LABS: Lipase 64 U/L (12-53)
[2024-11-08] MEDS: IOHEXOL 300 MG/ML 100ML BOTTLE IJ ONE (23:40)
[2024-11-08] MEDS: FAMOTIDINE 20 MG TAB PO ONE (23:43)
[2024-11-08] MEDS: ONDANSETRON ODT 4 MG TAB PO ONE (23:43)
[2024-11-08] MEDS: MAALOX PLUS or MAALOX 30 ML PO ONE (23:43)
[2024-11-08] MEDS: LIDOCAINE VISCOUS 2% 15ML UD PO ONE (23:43)
[2024-11-08] MEDS: DONNATAL 5ml ORAL Elix (BELLADONNA ALK-PHENOBARB) PO ONE (23:44)
[2024-11-09] VITALS (9 sets, daily range): BP systolic 110–138; BP diastolic 65–93; PULSE 62–82; RESP 14–22; TEMP 97.6–98.1; O2SAT 97–100
--- NOTE | 2024-11-09 00:10 | DVH ---
ABDOMINAL ULTRASOUND CLINICAL HISTORY: abd pain TECHNIQUE: Multiple grayscale and color Doppler ultrasound images were obtained of the abdomen. WID: COMPARISON: None FINDINGS: Liver and biliary System: Increased echogenicity, normal size measuring 15.3 cm. No focal hepatic observations. No intrahepatic bile duct dilatation. The common duct measures 6 mm at the phylicia hep atis. The gallbladder normal caliber without cholelithiasis or wall thickening. Contracted gallbla dder Pancreas: Visualized portions are unremarkable. Kidneys: The right kidney is 0.6 cm. No hydronephrosis, increased echogenicity, shadowing stone, or focal lesion. IMPRESSION: 1. Hepatic steatosis. 2. No acute cholecystitis or biliary ductal dilatation.
[2024-11-09] MEDS: cloNIDine HCL 0.1 MG TAB PO ONE (00:41)
--- NOTE | 2024-11-09 00:46 | DVH ---
CLINICAL HISTORY: abd pain TECHNIQUE: CT of the abdomen and pelvis was performed with intravenous contrast. 100 mL Omnipaque 300 injected This exam was performed according to our departmental dose optimization program. Up-to-date CT equipment and radiation dose reduction techniques are utilized as appropriate. COMPARISON: None FINDINGS: Lower Thorax: Unremarkable. Liver and Biliary system: Borderline hepatic steatosis no discrete hepatic lesion Gallbladder is nor mal caliber. No discrete hepatic lesion. Major portal veins are patent. Spleen: Unremarkable. Adrenal Glands and Kidneys: There is a 6 mm nonobstructing left upper pole renal calculus. Otherwise unremarkable adrenal glands and kidneys. Pancreas and Retroperitoneum: There is small amount of fluid in the pancreatico duodenal groove with a tiny cystic space on series 2, image 37. No retroperitoneal lymphadenopathy. Aorta and Major Vessels: Aortoiliac vessels are patent and normal caliber containing mild trace soft plaque. Bowel, Mesentery and Peritoneal space: Normal appendix. Normal caliber small and large bowel. There i s wall thickening of the gastric antrum. There is wall thickening and hyperemia of the 1st, 2nd, and proximal 3rd portion of the duodenum with trace adjacent fluid. There is no free air or fluid collect ion small short-segment small bowel intussusception in the left upper abdomen without obstruction ( s eries 601, image 35 and series 2 image 39-42 ). Pelvis: There is an IUD in the uterus. There is a prominent anterior/ right uterine body fibroid. Fol licles or small cysts in the bilateral ovaries. There is no pelvic lymphadenopathy. Urinary bladder i s unremarkable. Abdominal wall and Osseous Structures: No destructive osseous lesion. There is moderate degenerative disc space narrowing at L5-S1. There is grade 1 anterolisthesis at L5-S1. Minor lower thoracic and l umbar spondylosis. IMPRESSION: 1. Small amount of fluid in the pancreatico duodenal groove which also contains a tiny cystic space. Consider groove pancreatitis. 2. Mild hyperemia and thickening of the gastric antrum and proximal duodenal which could be peptic ul cer disease / duodenitis or reactive. This could be further evaluated with upper endoscopy if clinica lly indicated. 3. Short-segment intussusception of a proximal left upper quadrant small bowel loop. No bowel obstru ction. 4. Fibroid uterus. 5. Nonobstructing left upper pole renal calculus.
[2024-11-09] MEDS: PANTOPRAZOLE 40 MG/10 ML VIAL INJ IV ONE ×2 (02:00→06:45)
[2024-11-09] MEDS ORDERED: ONDANSETRON HCL 4 MG/2 ML VIAL IV PRN (02:00)
[2024-11-09] MEDS: LACTATED RINGER'S 1,000 ML IV ONE ×2 (02:00→06:45)
[2024-11-09 02:05] LABS: Urine Amorphous Crystal FEW /hpf (None Seen); Urine Bacteria FEW /hpf (None Seen); Urine Blood Negative /uL (Negative); Urine Clarity Turbid (Clear); Urine Color Light-Yellow (Yellow); Urine Mucus FEW (None Seen); Urine Protein, UAD Negative (Negative); Urine Specific Gravity 1.015 (1.001-1.035); Urine Squamous Epithelial Cell MOD /hpf (<5); Urine Urobilinogen Normal (Negative); Urine WBC 13 /hpf (0 - 5)
[2024-11-09] MEDS ORDERED: hydrALAZINE HCL 20 MG/ML VL IV PRN (03:00)
--- NOTE | 2024-11-09 03:12 | DVHHPRES ---
History of Present Illness Resident Creating Document: JHKIMMY CAMARGOKUSUM RESIDENT History of Present Illness Patient is a 44-year-old female with a past medical history of hypertension came to the ED with a chief complaint of worsening abdominal pain. Patient reports that about 2 months ago he started having abdominal pain which starts in the epigastrium and then whole abdomen starts aching with fullness and bloating. She has been having intermittent episodes of severe epigastric abdominal pain and after sometime she feels the whole abdomen is hurting, with tightness along the flanks, bloating. Patient reports that at night she has to sleep while sitting up as lying down worsens the pain. Pain improves with eating and the patient reports she can not go without eating for more than 2-3 hours and has to take small meals frequently. reports intermittant dark stools. Patient also reports early satiety but denies nausea, vomiting, diarrhea, heartburn, constipation, blood in stool. Patient reports NSAID (ibuprofen) use for a long time which she stopped when she started having the abdominal pain 2 months ago. Past medical history: Hypertension recently diagnosed Past surgical history: None Social history: Smokes 10 cigarettes a day for the last 10 year, about 16 oz of vodka every day for the last 6 years, denies other drug use. Home medication: Amlodipine 5mg Review of Systems Review of Systems Patient reports intermittent abdominal epigastric pain, severe, improved on sitting up Has Bloating Denies chest pain, shortness of breath, nausea, vomiting, diarrhea, blood in stools Denies dysuria. Allergies: Coded Allergies: No Known Drug Allergy (Verified Allergy, Unknown, 09/09/24) Medications Current Medications Medications Dose Ordered Sig/Charlette Route Start Time Stop Time Status Last Admin Dose Admin Pantoprazole Sodium 40 mg BID IV 11/09/24 10:00 UNV Ondansetron HCl 4 mg Q6HPRN PRN IV 11/09/24 02:00 UNV Morphine Sulfate 2 mg Q4HPRN PRN IV 11/09/24 02:00 UNV Exam Vital Signs Vital Signs Date Time Temp Pulse Resp B/P (MAP) Pulse Ox O2 Delivery O2 Flow Rate FiO2 11/09/24 01:52 123/94 11/09/24 00:41 93 16 100 11/08/24 23:23 98.8 98.8 11/08/24 23:23 Room Air Exam Physical Examination Constitutional: Alert and oriented to time, place and person and appears to be in mild distress because of the abdominal Gen - no pallor, no icterus, no cyanosis, no clubbing, no LAD, no edema . Skin - Patients skin is warm and dry. HEENT - normocephalic, atraumatic, dry mucous membranes. Neck - full ROM, no LAD, no JVD Pulmonary - B/L vesicular breath sounds. no crackles , no wheezing, no stridor. cardiovascular - normal S1,S2 heard. no murmurs heard. peripheral pulses radial 2+, pedal 2+. capillary refill normal <2 secs. GI - soft abdomen with tenderness to palpation in the epigastrium, RUQ and LUQ . Stout's sign negative. no hepatospleenomegaly. Bowel sounds normoactive Neurological - Bilateral upper extremity strength 5/5, bilateral lower extremity strength 5/5, no facial droop, normal speech, no tremor, no sensory deficiets. Labs/Xrays Labs Test 11/08/24 21:46 11/08/24 21:32 Range/Units White Blood Count 14.2 H 4.4-10.8 10^3/uL Red Blood Count 5.15 4.0-5.20 10^6/uL Hemoglobin 17.4 H 12.2-16.2 g/dL Hematocrit 50.9 H 36.0-46.0 % Mean Corpuscular Volume 98.8 80.0-100.0 fL Mean Corpuscular Hemoglobin 33.8 H 28.0-32.0 pg Mean Corpuscular Hemoglobin Concent 34.2 32.0-36.0 g/dL Red Cell Distribution Width 12.8 11.8-14.3 % Platelet Count 343 140-450 10^3/uL Mean Platelet Volume 8.4 6.9-10.8 fL Neutrophils (%) (Auto) 75.6 37.0-80.0 % Lymphocytes (%) (Auto) 17.5 10.0-50.0 % Monocytes (%) (Auto) 5.6 0.0-12.0 % Eosinophils (%) (Auto) 1.0 0.0-7.0 % Basophils (%) (Auto) 0.3 0.0-2.0 % Neutrophils # (Auto) 10.7 H 1.6-8.6 10 ^3/uL Lymphocytes # (Auto) 2.5 0.4-5.4 10 ^3/uL Monocytes # (Auto) 0.8 0-1.3 10 ^3/uL Eosinophils # (Auto) 0.1 0-0.8 10 ^3/uL Basophils # (Auto) 0 0-0.2 10 ^3/uL Nucleated Red Blood Cells 0.1 % Sodium Level 140 136-145 mmol/L Potassium Level 3.2 L 3.5-5.1 mmol/L Chloride Level 102 98-107 mmol/L Carbon Dioxide Level 33 H 20-31 mmol/L Anion Gap 5 5-15 Blood Urea Nitrogen 5 L 9-23 mg/dL Creatinine 0.69 0.550-1.02 mg/dL Glomerular Filtration Rate Calc 110 >90 mL/min BUN/Creatinine Ratio 7.2 L 10.0-20.0 Serum Glucose 97 74-106 mg/dL Calcium Level 11.1 H 8.7-10.4 mg/dL Total Bilirubin 0.2 0.2-1.0 mg/dL Aspartate Amino Transferase (AST) 18 13-40 U/L Alanine Aminotransferase (ALT) 27 7-40 U/L Alkaline Phosphatase 111 46-116 U/L Total Protein 7.8 5.7-8.2 g/dL Albumin 4.9 H 3.2-4.8 g/dL Lipase 64 H 12-53 U/L Beta HCG, Quantitative 0.8 L 1.5-4.2 mIU/mL Assessment/Plan Assessment/Plan Assessment/ plan # Acute Abdominal pain # SIRS positive # ?Acute pancreatitis ( ?Groove pancreatitis) # ?Peptic ulcer disease # ?Acute duodenitis -- CT abdomen with IV contrast shows 1. Small amount of fluid in the pancreatico duodenal groove which also contains a tiny cystic space. Consider groove pancreatitis. 2. Mild hyperemia and thickening of the gastric antrum and proximal duodenal which could be peptic ulcer disease / duodenitis or reactive. This could be further evaluated with upper endoscopy if clinically indicated. 3. Short-segment intussusception of a proximal left upper quadrant small bowel loop. No bowel obstruction. - Gallbladder ultrasound 1. Hepatic steatosis. 2. No acute cholecystitis or biliary ductal dilatation. - elevated H&H - stool occult blood pending - Lipase 64 - Patient is kept NPO. - Protonix 40mg IV bid - 1L LR bolus given - continued on LR 90ml/hr - morphine for pain control - GI consult pending - Monitor CMP, H&H # Hypertensive heart disease with uncontrolled HTN - as the patient is NPO, amlodipine is held - on hydralazine IV prn # Hepatic steatosis - h/o chronic heavy alcohol use - AST/ALT under normal limits - monitor CMP - advises cessation of alcohol use Goals of care discussed with the patient for over 25 minutes. Full code Plan discussed with Dr. Reid Plan discussed with: Patient My Orders Orders - CATIE BROWN Procedure Category Date Status Time Admit ADMIT 11/09/24 Transmitted 01:59 Code Status CODE 11/09/24 Transmitted 01:59 Npo (Nothing By DIET 11/09/24 Transmitted Mouth) Diet Breakfast Complete Blood Count LAB 11/09/24 Logged 04:00 Comprehensive LAB 11/09/24 Logged Metabolic Panel 04:00 Covid19 Antigen [place] LAB 11/09/24 Logged Rapid Influenza A&B LAB 11/09/24 Logged 01:59 Stool Occult Blood LAB 11/09/24 Logged 01:59 * [facility] Technical Assistant CONS 11/09/24 Transmitted 01:59 Pantoprazole PHA 11/09/24 Logged (Protonix) 02:00 Pantoprazole PHA 11/09/24 Logged (Protonix) 10:00 Lactated Ringer's PHA 11/09/24 Logged 02:00 Drug Screen LAB 11/09/24 Logged 01:59 Ondansetron Hcl PHA 11/09/24 Logged (Zofran) 02:00 Morphine Sulfate PHA 11/09/24 Logged Injection 02:00 Stool Wbc LAB 11/09/24 Logged 01:59 Date of Service: Nov 09, 2024 Billing Provider: CAMERON REID MD Common Visit Codes: 26512-[id number] INP/OBS CARE (HIGH) Secondary Visit Codes: [id number] CARE PLAN 30 MINUTES CATIE BROWN RESIDENT Nov 09, 2024 03:12 CAMERON REID MD Nov 09, 2024 10:42
--- NOTE | 2024-11-09 06:56 | ECG ---
[facility] Test Date: 2024-11-08 Test Time: 21:37:38 Pat Name: AMINAH YA Department: ED Room: 0212 Gender: F Run Boat Operator: CASANDRA : 1980 Requested By: BROOKLYN CHESTER Order Number: [id number] Reading MD: Johnathan Moon Measurements Intervals Ramona Rate: 82 P: 74 CO: 114 QRS: 53 QRSD: 83 T: 58 QT: 377 QTc: 441 Interpretive Statements Sinus rhythm Borderline short CO interval Baseline wander in lead(s) V1 Electronically Signed On 11-09-2024 14:49:04 PST by Johnathan Moon Please click the below link to view image of tracing.
[2024-11-09] MEDS ORDERED: AMLO1TAB22 PO (07:06)
[2024-11-09 07:35] LABS: Alanine Aminotransferase 25 U/L (7-40); Alkaline Phosphatase 98 U/L (46-116); Anion Gap 8 (5-15); Aspartate Aminotransferase 14 U/L (13-40); BUN/Creatinine Ratio 12.1 (10.0-20.0); Calcium 10.2 mg/dL (8.7-10.4); Carbon Dioxide 27 mmol/L (20-31); Chloride 104 mmol/L (98-107); Potassium 3.7 mmol/L (3.5-5.1); Sodium 139 mmol/L (136-145)
[2024-11-09 07:36] LABS: Total Protein 6.2 g/dL (5.7-8.2)
[2024-11-09 07:37] LABS: HDL Cholesterol 50 mg/dL (40-59)
[2024-11-09 07:39] LABS: Basophils # (auto) 0.1 10 ^3/uL (0-0.2); Basophils % (auto) 0.4 % (0.0-2.0); Eosinophils # (auto) 0.1 10 ^3/uL (0-0.8); Monocytes # (auto) 0.8 10 ^3/uL (0-1.3); Red Cell Distribution Width 12.3 % (11.8-14.3)
[2024-11-09 07:41] LABS: Eosinophils % (auto) 0.7 % (0.0-7.0); Hematocrit 44.4 % (36.0-46.0); Hemoglobin 15.4 g/dL (12.2-16.2); Lymphocytes # (auto) 2.7 10 ^3/uL (0.4-5.4); Lymphocytes % (auto) 19.6 % (10.0-50.0); Mean Corpuscular Hemoglobin 34.2 pg (28.0-32.0); Mean Corpuscular Hgb Conc. 34.8 g/dL (32.0-36.0); Mean Corpuscular Volume 98.3 fL (80.0-100.0); Monocytes % (auto) 5.8 % (0.0-12.0); Neutrophils % (auto) 73.5 % (37.0-80.0); Nucleated Red Blood Cells % 0.5 %; Platelet Count (auto) 284 10^3/uL (140-450); Red Blood Cells 4.51 10^6/uL (4.0-5.20); White Blood Cell 13.6 10^3/uL (4.4-10.8)
[2024-11-09] MEDS: LACTATED RINGER'S 1,000 ML IV SCH (08:00)
[2024-11-09] MEDS: MORPHINE SULFATE INJ 2 MG/ml SYRG IV PRN (08:37)
[2024-11-09 09:05] LABS: Cholesterol 205 mg/dL (< 200); LDL Cholesterol 130 mg/dL (< 100); Triglycerides 256 mg/dL (< 150)
[2024-11-09 09:13] LABS: Bilirubin, Total 0.3 mg/dL (0.2-1.0); Blood Urea Nitrogen 8 mg/dL (9-23)
[2024-11-09 09:15] LABS: Glucose 130 mg/dL (74-106)
[2024-11-09] MEDS: POTASSIUM CHLORIDE 20 MEQ, LIDOCAINE 1% (LOCAL ANESTH.) 2 ML in SODIUM CHL 0.9% 100 ML IV ONE (09:22)
[2024-11-09] MEDS: POTASSIUM EFFERVESENT TAB 25 MEQ PO ONE (09:26)
[2024-11-09 09:54] LABS: Lipase 53 U/L (12-53)
[2024-11-09] MEDS ORDERED: PANTOPRAZOLE 40 MG/10 ML VIAL INJ IV SCH ×2 (10:00→22:00)
[2024-11-09] MEDS ORDERED: PANTOPRAZOLE 40 MG TAB PO ONE (11:00)
[2024-11-09 11:09] LABS: COVID19 ANTIGEN SOFIA FIA NEGATIVE (NEGATIVE); Rapid Influenza A Negative (Negative); Rapid Influenza B Negative (Negative)
[2024-11-09 11:46] LABS: Prothrombin Time 10.6 sec (9.3-11.8)
[2024-11-09 12:01] LABS: CRP High Sensitivity 1.2 mg/dL (<1.0); Magnesium 1.5 mg/dL (1.6-2.6)
[2024-11-09] MEDS: SUCRALFATE 1 GM TAB PO ONE (12:18)
--- NOTE | 2024-11-09 14:52 | DVHPNRES ---
Progress Note Date Seen: Nov 09, 2024 Resident Creating Document: KERVIN POSEY RESIDENT Medical Necessity Reason Pt with a Central, PICC or Fol: No Subjective Review of Systems 44-year-old male patient with a past medical history of hypertension, alcohol abuse, nicotine dependency who was brought to emergency department with a chief complaint of acute epigastric abdominal pain has been progressively worsening for the last 2 months associated with fullness and bloating. Patient reports these episodes associated with tightness along the flanks but denies nausea vomiting diarrhea heartburn constipation. Patient reports that at night she has to sleep while sitting up as lying down worsened the pain. But pain improves with eating and the patient reports she can not go without eating for more than 2-3 hours and has a take small meals frequently. She also reports intermittent dark stools. Patient was examined at bedside she reports still having abdominal pain, patient was by GI specialist Dr. Thelma Escobedo started on Carafate p.o. b.i.d. and pantoprazole p.o. b.i.d., small-bowel series with a Gastrografin was ordered to rule out intussusception. The patient was started on clear liquid diets and she was provided counseling regarding stop smoking and using alcohol and the risk of future complications if she continue using them. We will continue monitor lipase levels as previous lipase were height which is concerning for acute pancreatitis. Past medical surgery: Hypertension, alcohol dependency, nicotine dependency Past surgical history: Home medications: Amlodipine 5 mg, patient reports NSAIDs use for a long time which she stopped because of the abdominal pain. Social history: Alcohol, she used to drink 2 glasses of vodka everyday Smoking, she used to smoke 10 cigarettes a day She denies using any other drugs. Objective vital signs Vital Sign Date Time Temp Pulse Resp B/P (MAP) Pulse Ox O2 Delivery O2 Flow Rate FiO2 11/09/24 12:52 75 20 100 Room Air* 0 21 11/09/24 10:19 98.0 138/93 (108) 98.0 medications Current Medications Medications Dose Ordered Sig/Charlette Route Start Time Stop Time Status Last Admin Dose Admin Ondansetron HCl 4 mg Q6HPRN PRN IV 11/09/24 02:00 Morphine Sulfate 2 mg Q4HPRN PRN IV 11/09/24 02:00 11/09/24 08:37 2 MG Hydralazine HCl 10 mg Q6HP PRN IV 11/09/24 03:00 Lactated Ringer's 1,000 ml @ 90 mls/hr Q11H7M IV 11/09/24 08:00 Pantoprazole Sodium 40 mg BID@0600,1700 PO 11/09/24 17:00 Sucralfate 1 gm BID PO 11/09/24 22:00 laboratory and microbiology Laboratory Tests 11/09/24 06:50 Test 11/09/24 06:50 Range/Units Serum Glucose 130 H 74-106 mg/dL Problem List/Assessment/Plan Problem List/Assessment/Plan # Acute Abdominal pain due to gastritis, rule out intussusception, rule out acute pancreatitis, duodenitis # SIRS positive - patient was admitted to [facility] - lipase levels came back elevated. - small bowel series with Gastrografin - Carafate p.o. b.i.d. - Protonix 40 p.o. b.i.d. - GI consult # ?Acute duodenitis, rule out peptic ulcer disease - GI team on board - clear liquid diet - same as above # Hypertensive heart disease with uncontrolled HTN - as the patient is NPO, amlodipine is held - on hydralazine IV prn # Hepatic steatosis - h/o chronic heavy alcohol use - AST/ALT under normal limits #Alcohol abuse -alcohol cessation counseling #Nicotine dependency -smoking cessation counseling #PUD prophylaxis -pantoprazole 40 mg b.i.d. p.o. #Diet: -clear liquid diet Discussed with Dr. Chambers Goals of care discussed with the patient for 36 minutes Code status: Full code Plan discussed with: Patient My Orders My Orders Orders - KERVIN POSEY RESIDENT Procedure Category Date Status Time Pantoprazole Tablet PHA 11/09/24 In Process (Protonix Tablet) 17:00 Sucralfate Tab PHA 11/09/24 In Process (Carafate Tab) 22:00 Clear Liq Diet DIET 11/09/24 Transmitted Lunch Small Bowel Series-W XY 11/09/24 Logged Gastrogra 10:47 Vitamin D, 25-Hydroxy LAB 11/09/24 In Process 10:51 Vitamin B12 LAB 11/09/24 In Process 10:51 Lipase LAB 11/10/24 Verified 04:00 Date of Service: Nov 09, 2024 Billing Provider: CAMERON CHAMBERS MD Common Visit Codes: [id number] INP/OBS CARE(HIGH) KERVIN POSEY RESIDENT Nov 09, 2024 14:52 CAMERON CHAMBERS MD Nov 10, 2024 10:21
[2024-11-09] MEDS: MAGNESIUM SULFATE 1GM/100ML 100 ML IV ONE (15:40)
[2024-11-09] MEDS: PANTOPRAZOLE 40 MG TAB PO SCH (16:54)
--- NOTE | 2024-11-09 20:38 | DVHINCON2 ---
Date of service: Nov 09, 2024 (Late entryPatient seen at 8:00 a.m. in ER bed 24) Referring Physician Dr Young Reason for Consultation Mild pancreatitis and epigastric pain History of Present Illness Patient is a 44-year-old female with a past medical history of hypertension came to the ED with a chief complaint of worsening abdominal pain. Patient reports that about 2 months ago he started having abdominal pain which starts in the epigastrium and then whole abdomen starts aching with fullness and bloating. She has been having intermittent episodes of severe epigastric abdominal pain and after sometime she feels the whole abdomen is hurting, with tightness along the flanks, bloating. Patient reports that at night she has to sleep while sitting up as lying down worsens the pain. Pain improves with eating and the patient reports she can not go without eating for more than 2-3 hours and has to take small meals frequently. reports intermittant dark stools. Patient also reports early satiety but denies nausea, vomiting, diarrhea, heartburn, constipation, blood in stool. Patient reports NSAID (ibuprofen) use for a long time which she stopped when she started having the abdominal pain 2 months ago. Past Medical History Hypertension Chronic alcohol abuse Chronic smoking with a 20 pack year smoking history Past Surgical History Negative Family History: Patient reports no known family medical history. Allergies: Coded Allergies: No Known Drug Allergy (Verified Allergy, Unknown, 09/09/24) Home Meds Reported Medications Amlodipine Besylate (Amlodipine Besylate) 5 Mg Tab, 1 TAB PO DAILY 11/09/24 Current Medications Current Medications Medications (Trade) Dose Ordered Sig/Charlette Route PRN Reason Start Time Stop Time Status Last Admin Pantoprazole Sodium (Protonix) 40 mg BID IV 11/09/24 10:00 11/09/24 06:39 DC Ondansetron HCl (Zofran) 4 mg Q6HPRN PRN IV NAUSEA / VOMITING 11/09/24 02:00 Morphine Sulfate 2 mg Q4HPRN PRN IV SEVERE PAIN (7-10 PAIN SCALE) 11/09/24 02:00 11/09/24 15:40 Hydralazine HCl (Apresoline Injection) 10 mg Q6HP PRN IV SBP>160 11/09/24 03:00 Lactated Ringer's 1,000 ml @ 90 mls/hr Q11H7M IV 11/09/24 08:00 12/28/24 15:55 Pantoprazole Sodium (Protonix) 40 mg BID IV 11/09/24 22:00 11/09/24 11:45 DC Pantoprazole Sodium (Protonix Tablet) 40 mg BID@0600,1700 PO 11/09/24 17:00 11/09/24 16:54 Sucralfate (Carafate Tab) 1 gm BID PO 11/09/24 22:00 Vital Signs Vital Signs Date Time Temp Pulse Resp B/P (MAP) Pulse Ox O2 Delivery O2 Flow Rate FiO2 11/09/24 17:28 98.1 62 20 116/68 (84) 98 98.1 11/09/24 12:52 Room Air* 0 21 Physical Exam Well-developed well-nourished lady mild distress due to abdominal pain Gen - no pallor, no icterus, no cyanosis, no clubbing, no LAD, no edema . Skin - Patients skin is warm and dry. HEENT - normocephalic, atraumatic, dry mucous membranes. Pulmonary -. no crackles , no wheezing, no stridor. cardiovascular - normal S1,S2 heard. no murmurs heard. GI - soft abdomen with tenderness to palpation in the epigastrium, Stout's sign negative. no hepatospleenomegaly. Bowel sounds normoactive Neurological - nonfocal no facial droop, normal speech, no tremor, no sensory deficiets. Labs/Diagnostic Data Labs Test 11/09/24 12:16 11/09/24 10:30 11/09/24 06:50 11/09/24 06:00 Range/Units Plasma/Serum Blood Alcohol < 3.0 <10 mg/dL Influenza Type A Antigen Negative Negative Influenza Type B Antigen Negative Negative SARS-CoV-2 Antigen (Rapid) Negative NEGATIVE White Blood Count 13.6 H 4.4-10.8 10^3/uL Red Blood Count 4.51 4.0-5.20 10^6/uL Hemoglobin 15.4 12.2-16.2 g/dL Hematocrit 44.4 # 36.0-46.0 % Mean Corpuscular Volume 98.3 80.0-100.0 fL Mean Corpuscular Hemoglobin 34.2 H 28.0-32.0 pg Mean Corpuscular Hemoglobin Concent 34.8 32.0-36.0 g/dL Red Cell Distribution Width 12.3 11.8-14.3 % Platelet Count 284 140-450 10^3/uL Mean Platelet Volume 8.8 6.9-10.8 fL Neutrophils (%) (Auto) 73.5 37.0-80.0 % Lymphocytes (%) (Auto) 19.6 10.0-50.0 % Monocytes (%) (Auto) 5.8 0.0-12.0 % Eosinophils (%) (Auto) 0.7 0.0-7.0 % Basophils (%) (Auto) 0.4 0.0-2.0 % Neutrophils # (Auto) 10.0 H 1.6-8.6 10 ^3/uL Lymphocytes # (Auto) 2.7 0.4-5.4 10 ^3/uL Monocytes # (Auto) 0.8 0-1.3 10 ^3/uL Eosinophils # (Auto) 0.1 0-0.8 10 ^3/uL Basophils # (Auto) 0.1 0-0.2 10 ^3/uL Nucleated Red Blood Cells 0.5 % Prothrombin Time 10.6 9.3-11.8 sec Prothrombin Time INR 1.00 0.9-1.15 Sodium Level 139 136-145 mmol/L Potassium Level 3.7 3.5-5.1 mmol/L Chloride Level 104 98-107 mmol/L Carbon Dioxide Level 27 20-31 mmol/L Anion Gap 8 5-15 Blood Urea Nitrogen 8 L 9-23 mg/dL Creatinine 0.66 0.550-1.02 mg/dL Glomerular Filtration Rate Calc 112 >90 mL/min BUN/Creatinine Ratio 12.1 10.0-20.0 Serum Glucose 130 H 74-106 mg/dL Hemoglobin A1c 5.4 <5.7 % A1C Calcium Level 10.2 8.7-10.4 mg/dL Magnesium Level 1.5 L 1.6-2.6 mg/dL Total Bilirubin 0.3 0.2-1.0 mg/dL Gamma Glutamyl Transpeptidase 37 <38 U/L Aspartate Amino Transferase (AST) 14 13-40 U/L Alanine Aminotransferase (ALT) 25 7-40 U/L Alkaline Phosphatase 98 46-116 U/L C-Reactive Protein High Sensitivity 1.20 H <1.0 mg/dL Total Protein 6.2 5.7-8.2 g/dL Albumin 4.0 3.2-4.8 g/dL Triglycerides Level 256 H < 150 mg/dL Cholesterol Level 205 H < 200 mg/dL LDL Cholesterol 130 H < 100 mg/dL HDL Cholesterol 50 40-59 mg/dL Lipase 53 12-53 U/L Thyroid Stimulating Hormone (TSH) 1.36 0.55-4.78 uIU/mL Stool Occult Blood Sample #3 Negative Negative Test 11/08/24 21:46 11/08/24 21:32 Range/Units Beta HCG, Quantitative 0.8 L 1.5-4.2 mIU/mL Urine Color Light-yellow Yellow Urine Clarity Turbid H Clear Urine pH 7.0 5.0-9.0 Urine Specific Hammett 1.015 1.001-1.035 Urine Protein Negative Negative Urine Ketones Negative Negative Urine Blood Negative Negative /uL Urine Nitrite Negative Negative Urine Bilirubin Negative Negative Urine Urobilinogen Normal Negative mg/dL Urine Leukocyte Esterase 1+ Negative /uL Urine RBC <1 0 - 4 /hpf Urine WBC 13 0 - 5 /hpf Urine Squamous Epithelial Cells Mod <5 /hpf Urine Calcium Oxalate Crystals Few None Seen Urine Amorphous Crystals Few None Seen /hpf Urine Bacteria Few H None Seen /hpf Urine Mucus Few None Seen Urine Glucose Normal Normal mg/dL GAllbladder USG IMPRESSION: 1. Hepatic steatosis. 2. No acute cholecystitis or biliary ductal dilatation. CT SCAN ABD PELVIS IMPRESSION: 1. Small amount of fluid in the pancreatico duodenal groove which also contains a tiny cystic space. Consider groove pancreatitis. 2. Mild hyperemia and thickening of the gastric antrum and proximal duodenal which could be peptic ulcer disease / duodenitis or reactive. This could be further evaluated with upper endoscopy if clinically indicated. 3. Short-segment intussusception of a proximal left upper quadrant small bowel loop. No bowel obstruction. 4. Fibroid uterus. 5. Nonobstructing left upper pole renal calculus. Problems(with codes): (1) Abnormal finding on GI tract imaging (2) Epigastric pain (3) Acute pancreatitis Plan/Recommendation Plan Start clear liquid diet and advance as tolerated Protonix 40 mg p.o. twice a day Carafate 1 g p.o. twice a day Zofran as needed for nausea vomiting Get small bowel follow-through x-ray to further evaluate the intussusception Monitor labs including lipase I will consider endoscopy on 11/11/2024 if the patient continues to be symptomatic Plan discussed with: Patient, Other (ER Nurse and Dr Betts) WAGNER ALICIA MD Nov 09, 2024 20:38
[2024-11-09] MEDS: SUCRALFATE 1 GM TAB PO SCH (21:41)
[2024-11-10] VITALS (7 sets, daily range): BP systolic 114–147; BP diastolic 79–86; PULSE 64–99; RESP 14–20; TEMP 97.7–98.2; O2SAT 95–100
[2024-11-10 06:02] LABS: Basophils # (auto) 0 10 ^3/uL (0-0.2); Basophils % (auto) 0.2 % (0.0-2.0); Eosinophils # (auto) 0.1 10 ^3/uL (0-0.8); Eosinophils % (auto) 1.5 % (0.0-7.0); Hematocrit 40.2 % (36.0-46.0); Hemoglobin 13.6 g/dL (12.2-16.2); Lymphocytes # (auto) 2.3 10 ^3/uL (0.4-5.4); Lymphocytes % (auto) 23.5 % (10.0-50.0); Mean Corpuscular Hgb Conc. 33.8 g/dL (32.0-36.0); Mean Corpuscular Volume 100.5 fL (80.0-100.0); Monocytes # (auto) 0.6 10 ^3/uL (0-1.3); Monocytes % (auto) 6.1 % (0.0-12.0); Neutrophils # (auto) 6.6 10 ^3/uL (1.6-8.6); Neutrophils % (auto) 68.7 % (37.0-80.0); Platelet Count (auto) 250 10^3/uL (140-450); Red Cell Distribution Width 12.3 % (11.8-14.3); White Blood Cell 9.6 10^3/uL (4.4-10.8)
[2024-11-10 06:17] LABS: Potassium 3.9 mmol/L (3.5-5.1); Sodium 140 mmol/L (136-145)
[2024-11-10 06:18] LABS: Anion Gap 3 (5-15); Carbon Dioxide 28 mmol/L (20-31)
[2024-11-10 06:23] LABS: Glucose 90 mg/dL (74-106)
[2024-11-10 06:24] LABS: Lipase 33 U/L (12-53)
[2024-11-10 06:31] LABS: Chloride 109 mmol/L (98-107)
[2024-11-10 06:32] LABS: BUN/Creatinine Ratio 8.8 (10.0-20.0); Blood Urea Nitrogen < 5 mg/dL (9-23)
--- NOTE | 2024-11-10 12:32 | DVHPN2 ---
Progress Note - Dictate Date Seen: Nov 10, 2024 Medical Necessity Reason Pt with a Central, PICC or Fol: No Subjective No new complaints, patient resting comfortably Patient is tolerating a soft diet Lipase level has normalized vital signs Vital Sign Date Time Temp Pulse Resp B/P (MAP) Pulse Ox O2 Delivery O2 Flow Rate FiO2 11/10/24 10:06 73 18 123/84 11/10/24 08:46 97.7 100 97.7 11/10/24 08:00 Room Air* 0 21 Total Intake and Output 11/09/24 11/09/24 11/10/24 14:59 22:59 06:59 Intake Total 360 ml 820 ml Output Total 600 ml Balance -240 ml 820 ml medications Current Medications Medications Dose Ordered Sig/Charlette Route Start Time Stop Time Status Last Admin Dose Admin Ondansetron HCl 4 mg Q6HPRN PRN IV 11/09/24 02:00 Morphine Sulfate 2 mg Q4HPRN PRN IV 11/09/24 02:00 11/10/24 10:06 2 MG Hydralazine HCl 10 mg Q6HP PRN IV 11/09/24 03:00 Lactated Ringer's 1,000 ml @ 90 mls/hr Q11H7M IV 11/09/24 08:00 11/10/24 09:11 90 MLS/HR Pantoprazole Sodium 40 mg BID@0600,1700 PO 11/09/24 17:00 11/10/24 05:36 40 MG Sucralfate 1 gm BID PO 11/09/24 22:00 11/10/24 09:21 1 GM objective Well-developed well-nourished lady no distress Gen - no pallor, no icterus, no cyanosis, no clubbing, no LAD, no edema . Skin - Patients skin is warm and dry. HEENT - normocephalic, atraumatic, dry mucous membranes. Pulmonary -. no crackles , no wheezing, no stridor. cardiovascular - normal S1,S2 heard. no murmurs heard. GI - soft abdomen with tenderness to palpation in the epigastrium, Stout's sign negative. no hepatosplenomegaly. Bowel sounds normoactive Neurological - nonfocal no facial droop, normal speech, no tremor, no sensory deficiets. laboratory and microbiology Laboratory Tests 11/10/24 05:03 Test 11/10/24 05:03 Range/Units Serum Glucose 90 74-106 mg/dL GB USG IMPRESSION: 1. Hepatic steatosis. 2. No acute cholecystitis or biliary ductal dilatation. Problems(with codes): (1) Abnormal finding on GI tract imaging (2) Epigastric pain (3) Acute pancreatitis Prognosis Assessment plan Patient likely had alcohol-related gastroduodenitis and pancreatitis Protonix 40 mg p.o. twice a day Carafate 1 g p.o. twice a day I recommend a EGD test for her which I will schedule tomorrow morning ; 11/11 Plan discussed with: Patient WAGNER ALICIA MD Nov 10, 2024 12:31
--- NOTE | 2024-11-10 13:00 | DVHPNRES ---
Progress Note Date Seen: Nov 10, 2024 Resident Creating Document: POLO THORNTON RESIDENT Medical Necessity Reason Pt with a Central, PICC or Fol: No Subjective Review of Systems 44-year-old male patient with a past medical history of hypertension, alcohol abuse, nicotine dependency who was brought to emergency department with a chief complaint of acute epigastric abdominal pain has been progressively worsening for the last 2 months associated with fullness and bloating. Patient reports these episodes associated with tightness along the flanks but denies nausea vomiting diarrhea heartburn constipation. Patient reports that at night she has to sleep while sitting up as lying down worsened the pain. But pain improves with eating and the patient reports she can not go without eating for more than 2-3 hours and has a take small meals frequently. She also reports intermittent dark stools. Past medical surgery: Hypertension, alcohol dependency, nicotine dependency Past surgical history: Home medications: Amlodipine 5 mg, patient reports NSAIDs use for a long time which she stopped because of the abdominal pain. Social history: Alcohol, she used to drink 2 glasses of vodka everyday Smoking, she used to smoke 10 cigarettes a day She denies using any other drugs. Patient was examined at bedside she reports still having abdominal pain, patient was by GI specialist Dr. Thelma Escobedo started on Carafate p.o. b.i.d. and pantoprazole p.o. b.i.d., diet is advanced to soft diet, possible EGD tomorrow Objective vital signs Vital Sign Date Time Temp Pulse Resp B/P (MAP) Pulse Ox O2 Delivery O2 Flow Rate FiO2 11/10/24 10:30 68 18 120/76 11/10/24 08:46 97.7 100 97.7 11/10/24 08:00 Room Air* 0 21 Total Intake and Output 11/09/24 11/09/24 11/10/24 15:00 23:00 07:00 Intake Total 360 ml 820 ml Output Total 600 ml Balance -240 ml 820 ml medications Current Medications Medications Dose Ordered Sig/Charlette Route Start Time Stop Time Status Last Admin Dose Admin Ondansetron HCl 4 mg Q6HPRN PRN IV 11/09/24 02:00 Morphine Sulfate 2 mg Q4HPRN PRN IV 11/09/24 02:00 11/10/24 10:06 2 MG Hydralazine HCl 10 mg Q6HP PRN IV 11/09/24 03:00 Lactated Ringer's 1,000 ml @ 90 mls/hr Q11H7M IV 11/09/24 08:00 11/10/24 09:11 90 MLS/HR Pantoprazole Sodium 40 mg BID@0600,1700 PO 11/09/24 17:00 11/10/24 05:36 40 MG Sucralfate 1 gm BID PO 11/09/24 22:00 11/10/24 09:21 1 GM Examination Constitutional: Alert and oriented to time, place and person and appears to be in mild distress because of the abdominal Gen - no pallor, no icterus, no cyanosis, no clubbing, no LAD, no edema . Skin - Patients skin is warm and dry. HEENT - normocephalic, atraumatic, dry mucous membranes. Neck - full ROM, no LAD, no JVD Pulmonary - B/L vesicular breath sounds. no crackles , no wheezing, no stridor. cardiovascular - normal S1,S2 heard. no murmurs heard. peripheral pulses radial 2+, pedal 2+. capillary refill normal <2 secs. GI - soft abdomen with tenderness to palpation in the epigastrium, RUQ and LUQ . Stout's sign negative. no hepatospleenomegaly. Bowel sounds normoactive Neurological - Bilateral upper extremity strength 5/5, bilateral lower extremity strength 5/5, no facial droop, normal speech, no tremor, no sensory deficiets. laboratory and microbiology Laboratory Tests 11/10/24 05:03 Test 11/10/24 05:03 Range/Units Serum Glucose 90 74-106 mg/dL Problem List/Assessment/Plan Problem List/Assessment/Plan # Acute Abdominal pain due to gastritis, rule out intussusception, rule out acute duodenitis # possible pancreatitis # SIRS positive - patient was admitted to [facility] - lipase levels came back elevated. - small bowel series with Gastrografin - Carafate p.o. b.i.d. - Protonix 40 p.o. b.i.d. - GI consult # possible peptic ulcer disease - GI team on board - advanced diet to soft - possible EGD tomorrow to rule out ulcer - NPO after midnight # Hypertensive heart disease with uncontrolled HTN - as the patient is NPO, amlodipine is held - on hydralazine IV prn # Hepatic steatosis - h/o chronic heavy alcohol use - AST/ALT under normal limits #Alcohol abuse -alcohol cessation counseling #Nicotine dependency -smoking cessation counseling #PUD prophylaxis -pantoprazole 40 mg b.i.d. p.o. #Diet: -soft diet Discussed with Dr. Perez Goals of care discussed with the patient for 26 minutes Code status: Full code Plan discussed with: Patient Date of Service: Nov 10, 2024 Billing Provider: SANDY PEREZ MD Common Visit Codes: [id number] INP/OBS CARE(HIGH) POLO THORNTON RESIDENT Nov 10, 2024 13:00 SANDY PEREZ MD Nov 11, 2024 16:49
[2024-11-11] VITALS (10 sets, daily range): BP systolic 120–178; BP diastolic 71–108; PULSE 68–78; RESP 16–21; TEMP 36.4; O2SAT 97–100
[2024-11-11] MEDS ORDERED: FLUMAZENIL 0.1 MG/ML INJ 10ML MDV IV ONE (08:06)
[2024-11-11] MEDS ORDERED: NALOXONE HCL 0.4 MG/ML VIAL ONE (08:06)
[2024-11-11] MEDS ORDERED: SODIUM CHLORIDE LOCK 10 ML ONE (08:07)
[2024-11-11] MEDS: fentaNYL CITRATE 100 MCG/2 ML VL ONE (08:34)
[2024-11-11] MEDS: LIDOCAINE VISCOUS 2% 15ML UD ONE (08:34)
[2024-11-11] MEDS: MIDAZOLAM HCL 5 MG/ML-1ML VIAL ONE (08:34)
[2024-11-11] MEDS: diphenhdrAMINE HCL 50 MG/1 ML VL ONE (08:34)
--- NOTE | 2024-11-11 08:48 | DVHOP2 ---
Operative Report DATE OF OPERATION: 11/11/24 PROCEDURE: Upper Endoscopy with biopsy. PREOPERATIVE INDICATION: The patient is a 44 -year-old female undergoing endoscopy for epigastric pain atypical chest pain and dyspepsia POSTOPERATIVE DIAGNOSES: 1. 2 cm sliding-type hiatal hernia with no significant erosive esophagitis 2. Mild to moderate gastritis involving the antrum and body of the stomach from which biopsies were obtained PROCEDURE PERFORMED BY: Wagner Escobedo GI NURSE: Dejah SCOPE: Olympus videoendoscope. ASA CLASS: 2. PREOPERATIVE MEDICATIONS: Versed 3 mg, Fentanyl 100 mcg, Benadryl 50 mg I administered moderate sedation throughout this _11_ minutes procedure. An independent trained observer pushed medications at my direction, and monitored the patient's level of consciousness and physiological status throughout. PROCEDURE IN DETAIL: After obtaining an informed consent, the patient was placed on left lateral decubitus position. The patient was then sedated with the above medications. A bite block was placed between her teeth. The endoscope was then passed through the oropharynx, into the esophagus, and through the stomach and pylorus up to the second and third part of the duodenum. The endoscope was then withdrawn. The 2nd and 3rd part of the duodenal and the duodenal bulb were normal. Duodenal biopsies were obtained. The pre-pyloric area antrum and body showed [id number] gastritis with some hyperemia erythema. Gastric biopsies were obtained. There were no ulcers and no fresh or old blood in the upper GI tract. On retroflexion the fundus cardia and angularis were normal. The endoscope was then withdrawn into the distal esophagus where she had a 2 cm sliding-type hiatal hernia but no significant erosive esophagitis The remaining distal and proximal esophagus and oropharynx were unremarkable The patient tolerated the procedure well without difficulty. COMPLICATIONS : None SPECIMENS: Duodenal biopsies Gastric biopsies DISPOSITION: Transfer back to the floor Stable PLAN: 1. Await for biopsy result 2. Will place pt on Protonix 40 mg p.o. daily 3. Carafate 1 g p.o. twice a day 4. Resume full liquid diet advance as tolerated 5. Monitor labs 6. Outpatient follow up with me in the coming year to discuss elective colonoscopy 7. Patient was counseled to discontinue drinking alcohol WAGNER ESCOBEDO MD Nov 11, 2024 08:47
[2024-11-11] MEDS ORDERED: PANT40T PO (14:34)
[2024-11-11] MEDS ORDERED: SUCR1SUS26 PO (14:34)
[2024-11-11] MEDS: PANTOPRAZOLE 40 MG TAB PO ONE (16:54)
--- NOTE | 2024-11-11 18:16 | DVHDSRES ---
Discharge Summary Date of Admission Resident Creating Document: KERVIN POSEY RESIDENT Nov 09, 2024 at 01:59 Date of Discharge: Nov 11, 2024 Admitting Diagnosis abdominal pain Labs/Diagnostic Data: Laboratory Results Test 11/10/24 05:03 11/09/24 12:16 11/09/24 10:30 11/09/24 06:50 White Blood Count 9.6 10^3/uL (4.4-10.8) Red Blood Count 4.00 10^6/uL (4.0-5.20) Hemoglobin 13.6 g/dL (12.2-16.2) Hematocrit 40.2 % (36.0-46.0) Mean Corpuscular Volume 100.5 fL (80.0-100.0) Mean Corpuscular Hemoglobin 34.0 pg (28.0-32.0) Mean Corpuscular Hemoglobin Concent 33.8 g/dL (32.0-36.0) Red Cell Distribution Width 12.3 % (11.8-14.3) Platelet Count 250 10^3/uL (140-450) Mean Platelet Volume 8.7 fL (6.9-10.8) Neutrophils (%) (Auto) 68.7 % (37.0-80.0) Lymphocytes (%) (Auto) 23.5 % (10.0-50.0) Monocytes (%) (Auto) 6.1 % (0.0-12.0) Eosinophils (%) (Auto) 1.5 % (0.0-7.0) Basophils (%) (Auto) 0.2 % (0.0-2.0) Neutrophils # (Auto) 6.6 10 ^3/uL (1.6-8.6) Lymphocytes # (Auto) 2.3 10 ^3/uL (0.4-5.4) Monocytes # (Auto) 0.6 10 ^3/uL (0-1.3) Eosinophils # (Auto) 0.1 10 ^3/uL (0-0.8) Basophils # (Auto) 0 10 ^3/uL (0-0.2) Nucleated Red Blood Cells 0.0 % Sodium Level 140 mmol/L (136-145) Potassium Level 3.9 mmol/L (3.5-5.1) Chloride Level 109 mmol/L (98-107) Carbon Dioxide Level 28 mmol/L (20-31) Anion Gap 3 (5-15) Blood Urea Nitrogen < 5 mg/dL (9-23) Creatinine 0.57 mg/dL (0.550-1.02) Glomerular Filtration Rate Calc 116 mL/min (>90) BUN/Creatinine Ratio 8.8 (10.0-20.0) Serum Glucose 90 mg/dL (74-106) Calcium Level 9.0 mg/dL (8.7-10.4) Lipase 33 U/L (12-53) Plasma/Serum Blood Alcohol < 3.0 mg/dL (<10) Influenza Type A Antigen Negative (Negative) Influenza Type B Antigen Negative (Negative) SARS-CoV-2 Antigen (Rapid) Negative (NEGATIVE) Prothrombin Time 10.6 sec (9.3-11.8) Prothrombin Time INR 1.00 (0.9-1.15) Hemoglobin A1c 5.4 % A1C (<5.7) Magnesium Level 1.5 mg/dL (1.6-2.6) Total Bilirubin 0.3 mg/dL (0.2-1.0) Gamma Glutamyl Transpeptidase 37 U/L (<38) Aspartate Amino Transferase (AST) 14 U/L (13-40) Alanine Aminotransferase (ALT) 25 U/L (7-40) Alkaline Phosphatase 98 U/L (46-116) C-Reactive Protein High Sensitivity 1.20 mg/dL (<1.0) Total Protein 6.2 g/dL (5.7-8.2) Albumin 4.0 g/dL (3.2-4.8) Triglycerides Level 256 mg/dL (< 150) Cholesterol Level 205 mg/dL (< 200) LDL Cholesterol 130 mg/dL (< 100) HDL Cholesterol 50 mg/dL (40-59) Vitamin B12 Level 216 pg/mL (211-911) Vitamin D 25-Hydroxy 12.1 ng/mL (30.0-100) Thyroid Stimulating Hormone (TSH) 1.36 uIU/mL (0.55-4.78) Test 11/09/24 06:00 11/08/24 21:46 11/08/24 21:32 Stool Occult Blood Sample #3 Negative (Negative) Beta HCG, Quantitative 0.8 mIU/mL (1.5-4.2) Urine Color Light-yellow (Yellow) Urine Clarity Turbid (Clear) Urine pH 7.0 (5.0-9.0) Urine Specific [place] 1.015 (1.001-1.035) Urine Protein Negative (Negative) Urine Ketones Negative (Negative) Urine Blood Negative /uL (Negative) Urine Nitrite Negative (Negative) Urine Bilirubin Negative (Negative) Urine Urobilinogen Normal mg/dL (Negative) Urine Leukocyte Esterase 1+ /uL (Negative) Urine RBC <1 /hpf (0 - 4) Urine WBC 13 /hpf (0 - 5) Urine Squamous Epithelial Cells Mod /hpf (<5) Urine Calcium Oxalate Crystals Few (None Seen) Urine Amorphous Crystals Few /hpf (None Seen) Urine Bacteria Few /hpf (None Seen) Urine Mucus Few (None Seen) Urine Glucose Normal mg/dL (Normal) Other Laboratory Tests 11/10/24 05:03 Brief Hx & Hospital Course: HPI: 44-year-old female with a history of hypertension, alcohol abuse, and nicotine dependence, presenting with complaints of progressive epigastric abdominal pain associated with bloating, fullness, and a history of NSAID use.The patient was evaluated for worsening abdominal pain, which was aggravated by lying down and improved with eating small, frequent meals. Hospital course: Initial workup included evaluation for acute pancreatitis and other possible etiologies of abdominal pain. GI was consulted and the upper GI endoscopy revealed mild to moderate gastritis with hyperemia and erythema of the pre- pyloric area and 2 cm sliding hiatal hernia observed during retroflexion.Biopsies were taken from the duodenum and stomach for further evaluation.The patient was managed with Protonix 40 mg daily, Carafate 1 g twice daily.She was counseled extensively on the importance of alcohol cessation and smoking cessation to prevent further GI complications. Disposition: The patient was discharged in stable condition to home. No complications were noted during hospitalization. Follow up with outpatient GI for elective colonoscopy discussion, continue prescribed medications and adhere to dietary recommendations and abstain from alcohol and tobacco use to prevent exacerbation of symptoms. Case discussed with Goals of care discussed with the patient for 32 minutes. Operations or Procedures [address] [address] Ph: [phone] DIAGNOSTIC IMAGING Diagnostic Imaging Report : [id number] Signed PATIENT: AMINAH YA LACCT: [id number] UNIT: [id number] : 1980 LOC: ER ROOM / BED: / AGE / SEX: 44 / F ADM STATUS: REG ER SERVICE [id number] ORDERING PHYSICIAN: BROOKLYN CHESTER MD PROCEDURE(s): ABPLIV - CT AB PEL WITH IV CON ONLY REASON: abd pain ORDER NUMBER(s): [id number], ACCESSION NUMBER(s): [id number] CLINICAL HISTORY: abd pain TECHNIQUE: CT of the abdomen and pelvis was performed with intravenous contrast. 100 mL Omnipaque 300 injected This exam was performed according to our departmental dose optimization program. Up-to-date CT equipment and radiation dose reduction techniques are utilized as appropriate. COMPARISON: None FINDINGS: Lower Thorax: Unremarkable. Liver and Biliary system: Borderline hepatic steatosis no discrete hepatic lesion Gallbladder is normal caliber. No discrete hepatic lesion. Major portal veins are patent. Spleen: Unremarkable. Adrenal Glands and Kidneys: There is a 6 mm nonobstructing left upper pole renal calculus. Otherwise unremarkable adrenal glands and kidneys. Pancreas and Retroperitoneum: There is small amount of fluid in the pancreatico duodenal groove with a tiny cystic space on series 2, image 37. No retroperitoneal lymphadenopathy. Aorta and Major Vessels: Aortoiliac vessels are patent and normal caliber containing mild trace soft plaque. Bowel, Mesentery and Peritoneal space: Normal appendix. Normal caliber small and large bowel. There is wall thickening of the gastric antrum. There is wall thickening and hyperemia of the 1st, 2nd, and proximal 3rd portion of the duodenum with trace adjacent fluid. There is no free air or fluid collection small short-segment small bowel intussusception in the left upper abdomen without obstruction ( series 601, image 35 and series 2 image 39-42 ). Pelvis: There is an IUD in the uterus. There is a prominent anterior/ right uterine body fibroid. Follicles or small cysts in the bilateral ovaries. There is no pelvic lymphadenopathy. Urinary bladder is unremarkable. Abdominal wall and Osseous Structures: No destructive osseous lesion. There is moderate degenerative disc space narrowing at L5-S1. There is grade 1 anterolisthesis at L5-S1. Minor lower thoracic and lumbar spondylosis. IMPRESSION: 1. Small amount of fluid in the pancreatico duodenal groove which also contains a tiny cystic space. Consider groove pancreatitis. 2. Mild hyperemia and thickening of the gastric antrum and proximal duodenal which could be peptic ulcer disease / duodenitis or reactive. This could be further evaluated with upper endoscopy if clinically indicated. 3. Short-segment intussusception of a proximal left upper quadrant small bowel loop. No bowel obstruction. 4. Fibroid uterus. 5. Nonobstructing left upper pole renal calculus. ATED BY: MICHI BA MD DICTATED DATE/TIME: 11/09/2442 SIGNED BY: MICHI BA MD SIGNED DATE/TIME: 11/09/2442 CC: [place] [id number] Ph: [phone] DIAGNOSTIC IMAGING Diagnostic Imaging Report : [id number] Signed PATIENT: AMINAH YA LACCT: [id number] UNIT: [id number] : 1980 LOC: ER ROOM / BED: / AGE / SEX: 44 / F ADM STATUS: REG ER SERVICE 30 ORDERING PHYSICIAN: BROOKLYN CHESTER MD PROCEDURE(s): GBUS - GALLBLADDER REASON: abd pain ORDER NUMBER(s): [id number], ACCESSION NUMBER(s): [id number] ABDOMINAL ULTRASOUND CLINICAL HISTORY: abd pain TECHNIQUE: Multiple grayscale and color Doppler ultrasound images were obtained of the abdomen. WID: COMPARISON: None FINDINGS: Liver and biliary System: Increased echogenicity, normal size measuring 15.3 cm. No focal hepatic observations. No intrahepatic bile duct dilatation. The common duct measures 6 mm at the phylicia hepatis. The gallbladder normal caliber without cholelithiasis or wall thickening. Contracted gallbladder Pancreas: Visualized portions are unremarkable. Kidneys: The right kidney is 0.6 cm. No hydronephrosis, increased echogenicity, shadowing stone, or focal lesion. IMPRESSION: 1. Hepatic steatosis. 2. No acute cholecystitis or biliary ductal dilatation. ATED BY: MICHI BA MD DICTATED DATE/TIME: 11/09/246 SIGNED BY: MICHI BA MD SIGNED DATE/TIME: 11/09/246 CC: Condition at Discharge: Fair Final Diagnosis/Problems List # Acute Epigastric pain due to mild to moderate gastritis # ruled out intussusception # possible pancreatitis # Acute pancreatitis # possible peptic ulcer disease # Hypertensive heart disease with uncontrolled HTN # Hepatic steatosis #Alcohol abuse #Nicotine dependency Discharge Disposition: Home SNF Discharge Will this Physician continue t: No Discharge Instruct/Medications Diet: Cardiac 2g Na,low cholest Activity: No Restrictions, As Tolerated Follow Up/Referral: follow up with PCP follow up with GI () Medications: script to pharmacy Discharge Statement: "Patient was advised to return to the ER or call 911 if any headaches, dizziness, shortness of breath, chest pain, abdominal pain, bleeding, fevers, or worsening of medical condition. Patient was counseled about treatment plan, medications, possible side effects, patientverbalized understanding. All questions were answered to the best of my ability. This discharge took greater then 30 minutes in planning, reviewing documentation, counseling the patient, and discussing with other team members." ASSESSMENT ASSESSMENT Assessment acute abdominal pain likely due to gastroduodenopathy alcohol abuse Date of Service: Nov 11, 2024 Billing Provider: PEDRO LAZO MD Common Visit Codes: 84098-SXT/OBS DISCH DAY >30min KERVIN POSEY RESIDENT Nov 11, 2024 18:16 PEDRO LAZO MD Nov 12, 2024 13:53
== END 2024-11-11 17:50 | disposition home or self-care (01) | DRG 241 ==
LOC: ER 21:01 → OVERFLOW 11-09 01:59 → UNDODISIN 11-09 04:21 → OVERFLOW 11-09 04:21 → UNDODEPER 11-09 05:27 → CENTRAL 11-09 10:05
PROVIDERS: ADMIT Student in an Organized Health Care Education/Training Program; ATTEND Emergency Medicine
PROC: 0DB68ZX Excision of Stomach, Via Natural or Artificial Opening Endoscopic, Diagnostic (ICD-10-PCS; 2024-11-11)
PROC: 0DB98ZX Excision of Duodenum, Via Natural or Artificial Opening Endoscopic, Diagnostic (ICD-10-PCS; principal; 2024-11-11 08:32)
DX: K29.70 Gastritis, unspecified, without bleeding (principal); K85.90 Acute pancreatitis without necrosis or infection, unspecified; R65.10 Systemic inflammatory response syndrome (SIRS) of non-infectious origin without acute organ dysfunction; K76.0 Fatty (change of) liver, not elsewhere classified; K27.9 Peptic ulcer, site unspecified, unspecified as acute or chronic, without hemorrhage or perforation; F10.10 Alcohol abuse, uncomplicated; Z20.822 Contact with and (suspected) exposure to COVID-19; I10 Essential (primary) hypertension; Y90.9 Presence of alcohol in blood, level not specified; F17.210 Nicotine dependence, cigarettes, uncomplicated; K44.9 Diaphragmatic hernia without obstruction or gangrene; Z79.899 Other long term (current) drug therapy; Z79.1 Long term (current) use of non-steroidal anti-inflammatories (NSAID); Z71.41 Alcohol abuse counseling and surveillance of alcoholic
CPT/HCPCS: 36415; 43239; 74177; 76705; 80048; 80053; 80061; 80320; 81001; 82270; 82306; 82607; 82977; 83036; 83690; 83735; 84443; 84702; 85025; 85610; 86141; 86850; 86900; 86901; 87426; 87804; G0378; J2003; J2250; J2470; Q0162